=== PATIENT | male | born 1945 | race Asian ===

== ENCOUNTER 2017-03-15 13:29 | Inpatient (IN) | payer OTHER ==
--- NOTE | 2017-03-15 13:42 | PDOC ---
History of Present Illness - History of Present Illness Initial Comments: 03/15/17 14:05 The patient is a 71 year old male, with a significant past medical history of hypertension, who presents to the emergency department via ems for left facial droop, left upper and lower extremity weakness this afternoon. The patient presents from [facility] friends who reports the patient was last known well at 1pm when he developed some slurred speech and left sided facial droop, as well as, left upper and lower extremity weakness. The patient states he was recently taken off of his losartan. He denies chest pain, shortness of breath, headache and dizziness. He denies fever, chills, nausea, vomit, diarrhea and constipation. He denies dysuria, frequency, urgency and hematuria. Allergies: NKDA Social history: Denies toxic habits <Rolanda Gonzalez - Last Filed: 03/15/17 14:31> <Xiomy Owens - Last Filed: 03/16/17 07:43> - General Chief Complaint: CVA/TIA Stated Complaint: LT SIDE NUMBNESS, CHEST PAIN Time Seen by Provider: 03/15/17 13:31 Past History <Rolanda Gonzalez - Last Filed: 03/15/17 14:31> - Past Medical History HTN: Yes - Psycho/Social/Smoking Cessation Hx Suicidal Ideation: No Smoking History: Never smoked Information on smoking cessation initiated: No <Xiomy Owens - Last Filed: 03/16/17 07:43> - Past Medical History Allergies/Adverse Reactions: Allergies Allergy/AdvReac Type Severity Reaction Status Date / Time No Known Allergies Allergy Verified 03/15/17 13:36 Home Medications: Ambulatory Orders NK [No Known Home Medication] 03/15/17 Review of Systems - Review of Systems Able to Perform ROS?: Yes Comments:: 03/15/17 14:08 GENERAL/CONSTITUTIONAL: No fever or chills. No weakness. HEAD, EYES, EARS, NOSE AND THROAT: No change in vision. No ear pain or discharge. No sore throat. CARDIOVASCULAR: No chest pain or shortness of breath. RESPIRATORY: No cough, wheezing, or hemoptysis. GASTROINTESTINAL: No nausea, vomiting, diarrhea or constipation. GENITOURINARY: No dysuria, frequency, or change in urination. MUSCULOSKELETAL: No joint or muscle swelling or pain. No neck or back pain. SKIN: No rash NEUROLOGIC: (+) Left facial droop, left upper and lower extremity weakness. No headache, vertigo, loss of consciousness ENDOCRINE: No increased thirst. No abnormal weight change. HEMATOLOGIC/LYMPHATIC: No anemia, easy bleeding, or history of blood clots. ALLERGIC/IMMUNOLOGIC: No hives or skin allergy. <MargaritafuentesyasminRolanda - Last Filed: 03/15/17 14:31> *Physical Exam - Vital Signs Last Vital Signs Temp Pulse Resp BP Pulse Ox 98 F 71 18 232/112 98 03/15/17 13:32 03/15/17 13:32 03/15/17 13:32 03/15/17 13:32 03/15/17 13:32 - Physical Exam Comments: 03/15/17 14:14 GENERAL: Awake, alert, and oriented, in no acute distress HEAD: No signs of trauma EYES: PERRLA, EOMI, sclera anicteric, conjunctiva clear ENT: Auricles normal inspection, hearing grossly normal, nares patent, oropharynx clear without exudates. Moist mucosa NECK: Normal ROM, supple, no lymphadenopathy, JVD, or masses LUNGS: Breath sounds equal, clear to auscultation bilaterally. No wheezes, and no crackles HEART: Regular rate and rhythm, normal S1 and S2, no murmurs, rubs or gallops ABDOMEN: Soft, nontender, normoactive bowel sounds. No guarding, no rebound. No masses EXTREMITIES: no edema. No clubbing or cyanosis. No cords, erythema, or tenderness SKIN: Warm, Dry, normal turgor, no rashes or lesions noted. NEUROLOGICAL: (+) See stroke scale <MargaritaRolanda fabian - Last Filed: 03/15/17 14:31> - Vital Signs Last Vital Signs Temp Pulse Resp BP Pulse Ox 98 F 71 18 232/112 98 03/15/17 13:32 03/15/17 13:32 03/15/17 13:32 03/15/17 13:32 03/15/17 13:32 <Xiomy Owens - Last Filed: 03/16/17 07:43> NIH Stroke Scale - Last Known Well Date/Time & Onset Date Last Known Well: 03/15/17 Time Last Known Well: 13:00 - Initial Evaluation Level of consciousness: Alert Ask patient the month and their age: Answers both correctly Ask patient to open & close eyes; make fist and let go: Obeys both correctly Best gaze (horizontal eye movement): Normal Visual field testing: No visual field loss Facial paresis (Show teeth/raise eyebrows/close eyes tight): Minor paralysis ( flattened nasolabial fold, asymmetry on smiling) Motor Function: Left Arm: Drift Motor Function: Right Arm: Normal (extends arm 90 (or 45) degrees for 10 seconds without drift Motor Function: Left Leg: Drift Motor Function: Right Leg: Normal (extends leg 30 degrees for 5 seconds without drift) Limb Ataxia: No ataxia Sensory(Use pinprick test arms,legs,trunk,face/side to side): Normal Best language (Describe picture, name items, read sentences): No Aphasia Dysarthria (read several words): Mild to moderate slurring of words Extinction and Inattention: No abnormality - Total Score NIH Stroke Scale Score: 4 <Xiomy Owens - Last Filed: 03/16/17 07:43> tPA Exclusion Checklist 0-3hr - Time Elapsed Date last known well: 03/15/17 Time last known well: 13:00 Elaspsed time: Day(s) and 18 Hour(s) and 42 Minutes <Xiomy Owens - Last Filed: 03/16/17 07:43> Critical Care Time/MDM Note - Medical Decision Making Note: 03/15/17 13:58 After getting the official read of the Head CT, Dr. Werner Rocha, Neurosurgeon, was paged via phone answering service at 14:00 requesting an urgent call back for doctor to doctor consult regarding this patient. 03/15/17 14:21 Dr. Werner Rocha was paged a second time at 14:20 requesting a call back for doctor to doctor consult. Dr. Rocha returned the call at 14:24 and the patient's case was discussed. 03/15/17 14:26 Dr. Martin, neurologist, was paged via phone answering service at this time requesting a call back for doctor to doctor consult. <Rolanda Gonzalez - Last Filed: 03/15/17 14:31> Total Critical Care Time: 35 Critical Care Statement: The care of this patient involved high complexity decision making to prevent further life threatening deterioration of the patient 's condition and/or to evalute & treat vital organ system(s) failure or risk of failure. - Medical Decision Making Note: 03/15/17 14:24 Case d/w Dr. Rocha- will medically manage BP with nicardipine drip. Goal SBP <160 , DBP <90. No operative intervention at this time. Will evaluate. 03/15/17 14:29 Case d/w Dr. Rice, accepted to ICU. <Xiomy Owens - Last Filed: 03/16/17 07:43> Discharge Disposition - Transfer to Acute Care Facility Transfer comment: 03/15/17 14:09 Documentation prepared by Rolanda Gonzalez, acting as medical receptionist biller for Xiomy Owens MD <Rolanda Gonzalez - Last Filed: 03/15/17 14:31> - Discharge Dispostion Admit: Yes <Xiomy Owens - Last Filed: 03/16/17 07:43> - Diagnosis Intracranial hemorrhage - Discharge Dispostion Condition at time of disposition: Critical ED Treatment Course - LABORATORY CBC & Chemistry Diagram: 03/15/17 13:15 03/15/17 13:15 - ADDITIONAL ORDERS Additional order review: Laboratory Results 03/15/17 13:41 POC Glucometer [id number] 03/15/17 03/15/17 13:41 13:15 RBC 4.79 MCV 92.1 MCHC 33.0 RDW 13.5 MPV 7.9 Neutrophils % 66.2 Lymphocytes % 20.4 Monocytes % 8.4 Eosinophils % 4.3 Basophils % 0.7 POC Glucometer [id number] - RADIOLOGY Radiograph Interpretation: 03/15/17 14:[address] was read by Dr. Alexander Lopez at 13:58 Impression: Right-sided internal capsular/intercerebral hemorrhage with minimal midline shift to the left. recommend follow-up to exclude underlying pathology. <Rolanda Gonzalez - Last Filed: 03/15/17 14:31> - LABORATORY CBC & Chemistry Diagram: 03/16/17 05:25 03/16/17 05:25 <Xiomy Owens - Last Filed: 03/16/17 07:43>
[2017-03-15] MEDS ORDERED: SODIUM CHLORIDE 1,000 ML IV SCH (13:45)
[2017-03-15 13:53] LABS: BASOPHIL 0.7 % (0-2.0); EOSINOPHIL 4.3 % (0-4.5); MCH 30.4 pg (25.7-33.7); MEAN CELL VOLUME 92.1 fl (80-96); MEAN PLT VOLUME 7.9 fl (7.5-11.1); NEUTROPHILS 66.2 % (42.8-82.8); PLATELET COUNT 237 K/MM3 (134-434); RDW 13.5 % (11.9-15.9)
[2017-03-15] MEDS ORDERED: NICARDIPINE 25 MG in DEXTROSE 5%-WATER - 240 ML IVPB SCH ×2 (14:00→14:26)
[2017-03-15] MEDS ORDERED: niCARdipine HCL 25 MG/10 ML AMPUL IVPB ONE (14:14)
[2017-03-15 14:15] LABS: ANION GAP 9 (8-16); BILIRUBIN,TOTAL 0.6 mg/dL (0.2-1.0); CALCIUM 8.5 mg/dL (8.5-10.1); CHOLESTEROL 209 mg/dL (50-200); CO2 28 mmol/L (21-32); COCKROFT - GAULT 42.84; CREATININE 1.4 mg/dL (0.7-1.3); GLUCOSE,RANDOM 87 mg/dL (74-106); SGOT/AST 18 U/L (15-37); SGPT/ALT 20 U/L (12-78); TOT PROT 7.4 g/dl (6.4-8.2)
[2017-03-15 14:18] LABS: ALK PHOS 63 U/L (45-117); TROPONIN I < 0.02 ng/ml (0.00-0.05)
[2017-03-15 14:55] LABS: LDL CHOLESTEROL (ONLY SJRH) 125 mg/dL (5-100)
[2017-03-15] MEDS: NICARDIPINE 25 MG in DEXTROSE 5%-WATER - 240 ML IVPB SCH (15:10)
[2017-03-15] MEDS ORDERED: ACETAMINOPHEN 1000 MG/100 ML VIAL (NON FORMULARY) IVPB PRN (16:14)
--- NOTE | 2017-03-15 17:24 | HP ---
CHIEF COMPLAINT: Left arm weakness PCP: HISTORY OF PRESENT ILLNESS: 71 year old male with pmh of HTN, hyperlipidemia who recently went off his Losartan persent to the emergency department with left arm weakness. The patient started having left arm weakness while driving at 11am today going to [employer]. During [employer] patient had multiple episode of left arm weakness, drop bible, cups. Around 1PM, [facility] saw patient having slurred speech, left facial droop, left arm weakness and started to have difficulty walking. Pt said his blood pressure has been 150's recently. Pt denies headache, blurred vision, double vision, n/v, dizziness, confusion, numbness or tingling, dizziness. ER course was notable for: (1) CT head (2) Nicardipine drip, NS at 42ml/h (3) EKg Recent Travel: PAST MEDICAL HISTORY: Hypertension, Hyperlipidemia PAST SURGICAL HISTORY: None Social History: Smoking: quit 10 years ago, smoked for 35 year 1/2 pack per day Alcohol: none Drugs: none Family History: father with HTN, Sister with HTN, PA, CVA Allergies No Known Allergies Allergy (Verified 03/15/17 13:36) HOME MEDICATIONS: Home Medications Medication Instructions Recorded NK [No Known Home Medication] 03/15/17 REVIEW OF SYSTEMS CONSTITUTIONAL: Absent: fever, chills, diaphoresis, generalized weakness, malaise, loss of appetite, weight change HEENT: left facial droop Absent: rhinorrhea, nasal congestion, throat pain, throat swelling, difficulty swallowing, mouth swelling, ear pain, eye pain, visual changes CARDIOVASCULAR: Absent: chest pain, syncope, palpitations, irregular heart rate, lightheadedness , peripheral edema RESPIRATORY: Absent: cough, shortness of breath, dyspnea with exertion, orthopnea, wheezing, stridor, hemoptysis GASTROINTESTINAL: Absent: abdominal pain, abdominal distension, nausea, vomiting, diarrhea, constipation, melena, hematochezia GENITOURINARY: Absent: dysuria, frequency, urgency, hesitancy, hematuria, flank pain, genital pain MUSCULOSKELETAL: Absent: myalgia, arthralgia, joint swelling, back pain, neck pain SKIN: Absent: rash, itching, pallor HEMATOLOGIC/IMMUNOLOGIC: Absent: easy bleeding, easy bruising, lymphadenopathy, frequent infections ENDOCRINE: Absent: unexplained weight gain, unexplained weight loss, heat intolerance, cold intolerance NEUROLOGIC: left arm weakness Absent: headache, or paresthesias, dizziness, unsteady gait, seizure, mental status changes, bladder or bowel incontinence PSYCHIATRIC: Absent: anxiety, depression, suicidal or homicidal ideation, hallucinations. PHYSICAL EXAMINATION Vital Signs - 24 hr 03/15/17 03/15/17 03/15/17 14:45 15:10 15:30 Pulse Rate [ 60 84 93 H Left Radial] Respiratory 18 18 18 Rate Blood Pressure 185/104 Blood Pressure 190/110 185/104 150/85 [Left Arm] O2 Sat by Pulse 99 100 99 Oximetry (%) GENERAL: Awake, alert, and fully oriented, in no acute distress. HEAD: Normal with no signs of trauma. EYES: Pupils equal, round and reactive to light, extraocular movements intact, sclera anicteric, conjunctiva clear. No lid lag. EARS, NOSE, THROAT: Ears normal, nares patent, oropharynx clear without exudates. Moist mucous membranes. NECK: Normal range of motion, supple without lymphadenopathy, JVD, or masses. LUNGS: Breath sounds equal, clear to auscultation bilaterally. No wheezes, and no crackles. No accessory muscle use. HEART: irregular rate and rhythm, normal S1 and S2 without murmur, rub or gallop. ABDOMEN: Soft, nontender, not distended, normoactive bowel sounds, no guarding, no rebound, no masses. No hepatomegaly or splenomegaly. MUSCULOSKELETAL: Normal range of motion at all joints. No bony deformities or tenderness. No CVA tenderness. UPPER EXTREMITIES: 2+ pulses, warm, well-perfused. No cyanosis. No clubbing. No peripheral edema. LOWER EXTREMITIES: 2+ pulses, warm, well-perfused. No calf tenderness. No peripheral edema. NEUROLOGICAL: Alert, awake, appropriate. Cranial nerves 2-12 intact. left facial droop, no uvula, tongue, palate deviation. No deficits to light touch and temperature in face, upper extremities and lower extremities. motor deficits in the in left face, left upper extremities 4/5 while right upper ext 5 /5 strength and lower extremities 5/5 rigth and 4.5/5 left. Normoreflexic in the upper ext and lower extremities ext reflex 3+ b/l . Slurred speech. Toes are down-going bilaterally. Gait not observed PSYCHIATRIC: Cooperative. Good eye contact. Appropriate mood and affect. SKIN: Warm, dry, normal turgor, no rashes or lesions noted, normal capillary refill. ASSESSMENT/PLAN: 71 year old male with pmh of HTN, hyperlipidemia who recently went off his Losartan present to the emergency department with left arm weakness. Pt was found to have intracranial hemorrhage. Intracranial Hemorrhage CT head showed Right internal capsular/intracerebral hemorrhage with minimal midline shift to the left Pt came in with BP 232/112, MAP>152 Pt placed on Nicardipine drip with BP goal 20% drop or < 160/105, avoid hypotension Normal saline at 42ml/h Pt failed bedside swallow NPO Speech therapy consult Watch for Increased ICP watch for Nola reflex ( hypertension and bradycardia ) keep HOB elevated 30-45 degrees Aspiration precaution Consider Mannitol and/or hypertonic saline If increase ICP Consider Keppra, Dilantin or Fosphenitoin If seizure Neurocheck q1-2h GCS q1-2h If worsening neurocheck or dropping GCS, consider intubating Consider dropping PCO2 25-30 BGM q6h Novolog sliding scale, avoid hypoglycemia, Goal Blood sugar 140-[address] Rocha Neurology consulted Dr keith New onset AFIB EKG stat ECho Cardio consult NO anticoagulation due to hemorrhagic stroke Consider cardizem 10mg prn IV consider metoprolol 5mg IV prn FEN Fluid:Increase to 100ml/h Electrolytes: no abdnormality Nutrition : NPO Deconditioning: PT/OT DVT prophylaxis: SCD Disposition: admit to ICU Visit type - Emergency Visit Emergency Visit: Yes ED Registration Date: 03/15/17 Care time: The patient presented to the Emergency Department on the above date and was hospitalized for further evaluation of their emergent condition. - New Patient This patient is new to me today: Yes Date on this admission: 03/15/17 - Critical Care Critical Care patient: No Total Critical Care Time (in minutes): 45 Critical Care Statement: The care of this patient involved high complexity decision making to prevent further life threatening deterioration of the patient 's condition and/or to evalute & treat vital organ system(s) failure or risk of failure.
--- NOTE | 2017-03-15 17:53 | PN ---
Teaching Attending Note Name of Resident: Erik Pryor ATTENDING PHYSICIAN STATEMENT I saw and evaluated the patient. I reviewed the resident's note and discussed the case with the resident. I agree with the resident's findings and plan as documented. SUBJECTIVE: This is a 71-year-old man with a history of HTN who presented to the ER with left facial droop and left sided weakness. He reports having left arm weakness while driving to [employer] at 11 am. He was noted to have slurred speech and left facial droop while at [employer] around 1 pm. He had difficulty walking. He was recently taken off Cozaar. OBJECTIVE: Vital Signs Period Temp Pulse Resp BP Sys/Alba Pulse Ox Last 24 Hr 98 F 60-93 18-18 150-232/85-116 98-100 HEART: Irregularly irregular LUNGS: Clear ABDOMEN: Soft, non-tender, nondistended, normal BS EXTREMITIES: No edema NEUROLOGICAL: Alert, oriented, dysarthria, left facial droop, tongue deviates to left, strength 4/5 on left, sensation intact ASSESSMENT AND PLAN: This is a 71-year-old man with a history of HTN, recently taken off antihypertensives, who comes to the ER with slurred speech, left facial droop, left-sided weakness. 1. 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 Uncontrolled HTN - Manage with Nicardipine drip 3. New-onset atrial fibrillation - Cardiac monitoring - Rate currently is ok - Monitor troponin - Echocardiogram - No anticoagulation secondary to intracranial hemorrhage
--- NOTE | 2017-03-15 18:05 | EKG ---
Test Reason : Blood Pressure : / mmHG Vent. Rate : 065 BPM Atrial Rate : 065 BPM P-R Int : 168 ms QRS Dur : 080 ms QT Int : 416 ms P-R-T Axes : 063 -04 010 degrees QTc Int : 432 ms NORMAL SINUS RHYTHM VOLTAGE CRITERIA FOR LEFT VENTRICULAR HYPERTROPHY ABNORMAL ECG NO PREVIOUS ECGS AVAILABLE Confirmed by MARY MORALES MD ([id number]) on 03/15/2017 6:04:46 PM Referred By: Confirmed By:MARY MORALES MD
[2017-03-15] MEDS: SODIUM CHLORIDE 1,000 ML IV SCH (19:09)
[2017-03-15] MEDS: INSULIN SLIDING SCALE (NOVOLOG) 1 VIAL SQ SCH ×2 (19:09→23:40)
[2017-03-15 19:48] LABS: URINE APPEARANCE CLEAR; URINE BILIRUBIN NEGATIVE (NEGATIVE); URINE BLOOD NEGATIVE (NEGATIVE); URINE COLOR COLORLESS; URINE GLUCOSE (UA) NEGATIVE (NEGATIVE); URINE KETONE TRACE (NEGATIVE); URINE LEUK ESTERASE NEGATIVE (NEGATIVE); URINE NITRITE NEGATIVE (NEGATIVE); URINE PROTEIN NEGATIVE (NEGATIVE); URINE UROBILINOGEN NEGATIVE E.U./dl (0.2-1.0)
--- NOTE | 2017-03-15 20:08 | CONSULT ---
Consult Consult Specialty:: CCM Reason for Consultation:: ICH - History of Present Illness Chief Complaint: left sided weakness History of Present Illness: This is a 71 yo man former smoker, HLD, HTN recently taken off losartan who presented to the ED with new onset left sided weakness, facial droop and slurred speech. Briefly, he was in his usual state of health when driving to [employer] he noticed left arm weakness w/o any LOC/vertigo/CLEMENT/nausea/dizziness/ blurry vision/CP. At [employer] he continued to have left sided weakness and was dropping objects. A ED doctor was in the [employer] and noticed a new left sided facial droop and EMS was activated. In the ED his exam was notable for left sided facial droop, left upper and lower extremity weakness. He had left sided pronator drift on exam with slurring of some words. HCT done: Right-sided internal capsular/intracerebral hemorrhage with minimal midline shift to the left. Neurology and Neurosurgery consulted. BP was noted to be 232/112 and diltiazem drip started for BP control. He had a run of RVR that convert back to NSR with the CCB drip. Patient transferred to ICU for continued care and monitoring. In the ICU he remains on the CCB drip with BP: 140-160. He is awake, alert and cooperative. He denies: CP/n/v/vertigo/LOC/dizziness/CLEMENT. Exam notable for left facial droop and left sided pronator drift. - History Source History Provided By: Patient, Medical Record Limitations to Obtaining History: No Limitations - Past Medical History Cardio/Vascular: Yes: HTN, Hyperlipdemia - Smoking History Smoking history: Former smoker Have you smoked in the past 12 months: No If you are a former smoker, when did you quit?: 2006 - Social History Usual Living Arrangement: With Spouse History of Recent Travel: No Home Medications - Allergies Allergies/Adverse Reactions: Allergies Allergy/AdvReac Type Severity Reaction Status Date / Time No Known Allergies Allergy Verified 03/15/17 13:36 - Home Medications Home Medications: Ambulatory Orders NK [No Known Home Medication] 03/15/17 Family Disease History - Family Disease History Family History: Unremarkable Review of Systems - Review of Systems Constitutional: reports: Weakness (left sided) HENT: reports: Difficult Swallowing Neurological: reports: Change in Speech, Unsteady Gait Physical Exam Vital Signs: Vital Signs Temperature 98 F 03/15/17 13:32 Pulse Rate 77 03/15/17 19:20 Respiratory Rate 20 03/15/17 19:20 Blood Pressure 169/89 03/15/17 19:20 O2 Sat by Pulse Oximetry (%) 99 03/15/17 19:20 Current Medications Acetaminophen (Ofirmev Injection -) 1,000 mg IVPB Q6H PRN PRN Reason: FEVER OR PAIN Stop: 03/16/17 10:15 Chlorhexidine Gluconate (Hibiclens For Decolonization -) 1 applic TP HS NIRAJ Nicardipine HCl 25 mg/ (Dextrose) 250 mls @ 25 mls/hr IVPB TITR NIRAJ; 2.5 MG/HR PRN Reason: Protocol Last Titration: 03/15/17 18:09 Dose: 2.5 mg/hr Sodium Chloride (Normal Saline -) 1,000 mls @ 100 mls/hr IV ASDIR NIRAJ Last Admin: 03/15/17 19:09 Dose: 100 mls/hr Insulin Aspart (Novolog Vial Sliding Scale -) 1 vial SQ Q6HPO NIRAJ PRN Reason: Protocol Last Admin: 03/15/17 19:09 Dose: Not Given Mupirocin (Bactroban Ointment (For Decolonization) -) 1 applic NS BID NIRAJ Stop: 03/20/17 21:59 Constitutional: Yes: Well Nourished, No Distress, Calm Eyes: Yes: EOM Intact, PERRL HENT: Yes: Atraumatic, Normocephalic Neck: Yes: Trachea Midline Cardiovascular: Yes: Regular Rate and Rhythm, S2 Respiratory: Yes: CTA Bilaterally Gastrointestinal: Yes: Normal Bowel Sounds, Soft Extremities: Yes: WNL Edema: No Neurological: Yes: Alert, Oriented, Facial Droop (left side), Other (left sided drift) Psychiatric: Yes: Alert, Oriented Labs: CBCD WBC 6.0 K/mm3 (4.0-10.0) 03/15/17 13:15 RBC 4.79 M/mm3 (4.00-5.60) 03/15/17 13:15 Hgb 14.6 GM/dL (11.7-16.9) 03/15/17 13:15 Hct 44.2 % (35.4-49) 03/15/17 13:15 MCV 92.1 fl (80-96) 03/15/17 13:15 MCHC 33.0 g/dl (32.0-35.9) 03/15/17 13:15 RDW 13.5 % (11.9-15.9) 03/15/17 13:15 Plt Count 237 K/MM3 (134-434) 03/15/17 13:15 MPV 7.9 fl (7.5-11.1) 03/15/17 13:15 CMP Sodium 141 mmol/L (136-145) 03/15/17 13:15 Potassium 3.4 mmol/L (3.5-5.1) L 03/15/17 13:15 Chloride 104 mmol/L (98-107) 03/15/17 13:15 Carbon Dioxide 28 mmol/L (21-32) 03/15/17 13:15 Anion Gap 9 (8-16) 03/15/17 13:15 BUN 13 mg/dL (7-18) 03/15/17 13:15 Creatinine 1.4 mg/dL (0.7-1.3) H 03/15/17 13:15 Creat Clearance w eGFR 49.96 (>60) 03/15/17 13:15 Random Glucose 87 mg/dL (74-106) 03/15/17 13:15 Calcium 8.5 mg/dL (8.5-10.1) 03/15/17 13:15 Total Bilirubin 0.6 mg/dL (0.2-1.0) 03/15/17 13:15 AST 18 U/L (15-37) 03/15/17 13:15 ALT 20 U/L (12-78) 03/15/17 13:15 Alkaline Phosphatase 63 U/L (45-117) 03/15/17 13:15 Total Protein 7.4 g/dl (6.4-8.2) 03/15/17 13:15 Albumin 4.0 g/dl (3.4-5.0) 03/15/17 13:15 CARDIAC ENZYMES Creatine Kinase 91 IU/L (39-308) 03/15/17 13:15 Troponin I < 0.02 ng/ml (0.00-0.05) 03/15/17 13:15 Imaging - Results Chest X-ray: Report Reviewed, Image Reviewed Cat Scan: Report Reviewed, Image Reviewed Problem List - Problems (1) Intracranial hemorrhage Code(s): I62.9 - NONTRAUMATIC INTRACRANIAL HEMORRHAGE, UNSPECIFIED (2) HTN (hypertension) Code(s): I10 - ESSENTIAL (PRIMARY) HYPERTENSION (3) Atrial fibrillation with RVR Code(s): I48.91 - UNSPECIFIED ATRIAL FIBRILLATION (4) Hypertensive emergency Code(s): I16.1 - HYPERTENSIVE EMERGENCY Assessment/Plan A/P: This is a 71 yo man with HLD, HTN p/w hypertensive emergency with right sided ICH: Right-sided internal capsular/intracerebral hemorrhage with minimal midline shift to the left, c/c/b afib w/ RVR -ICU monitoring -Neuro/neurosurgery following -frequent neuro checks -repeat head CT in AM or with any change in clinical status -BP control with diltiazem: goal SBP 140-160 -rate control w/ CCB -NPO, w/ speech pathology to follow -IV fluids -early PT/OT -no anticoagulation given ICH -no indication for GI prophylaxis Boelatonya ACNP Pulm/CCM CCT: 35m
[2017-03-15] MEDS: MUPIROCIN 2% TOPICAL OINTMENT FOR DECOLONIZATION NS SCH (21:30)
[2017-03-15] MEDS: CHLORHEXIDINE GLUCONATE 4% CLEANSER FOR DECOLONIZATION TP SCH (21:30)
[2017-03-16] MEDS ORDERED: niCARdipine HCL 25 MG/10 ML AMPUL IVPB ONE (05:57)
[2017-03-16 06:20] LABS: BASOPHIL 0.6 % (0-2.0); EOSINOPHIL 4.4 % (0-4.5); MCH 30.4 pg (25.7-33.7); MCHC 33.3 g/dl (32.0-35.9); MEAN CELL VOLUME 91.4 fl (80-96); MEAN PLT VOLUME 8.3 fl (7.5-11.1); NEUTROPHILS 67.2 % (42.8-82.8); PLATELET COUNT 257 K/MM3 (134-434); RDW 13.4 % (11.9-15.9); WHITE BLOOD COUNT 6.4 K/mm3 (4.0-10.0)
[2017-03-16 06:42] LABS: INR 1.03 (0.82-1.09); PROTHROMBIN TIME (PATIENT) 11.3 SEC (9.98-11.88)
[2017-03-16 06:43] LABS: ALBUMIN 3.8 g/dl (3.4-5.0); ANION GAP 11 (8-16); CALCIUM 8.2 mg/dL (8.5-10.1); CO2 27 mmol/L (21-32); COCKROFT - GAULT 52.21; CREATININE 1.1 mg/dL (0.7-1.3); GLUCOSE,RANDOM 74 mg/dL (74-106); PHOSPHOROUS 2.5 mg/dL (2.5-4.9); SGOT/AST 18 U/L (15-37); SGPT/ALT 19 U/L (12-78)
[2017-03-16 06:45] LABS: ACTIVATED PTT 36.7 SECONDS (26.9-34.4)
[2017-03-16 06:47] LABS: ALK PHOS 63 U/L (45-117); BILIRUBIN,TOTAL 0.8 mg/dL (0.2-1.0); TOT PROT 7.2 g/dl (6.4-8.2); TROPONIN I 0.05 ng/ml (0.00-0.05)
[2017-03-16] MEDS: INSULIN SLIDING SCALE (NOVOLOG) 1 VIAL SQ SCH ×3 (06:48→20:30)
--- NOTE | 2017-03-16 08:17 | PN ---
Progress Note (short form) - Note Progress Note: NEUROSURGERY CONSULT DICTATED Pt examined Chart reviewed D/w ED earlier H/o hypertension recently off meds, presents to the emergency department via ems for left facial droop, left upper and lower extremity weakness yestesday afternoon. Had developed some slurred speech and left sided facial droop, left upper and lower extremity weakness. PE:98 123/75, with SBP over 230 in ED A/A/Ox4 HEENT- NC/AT; Neck- supple; Cor- RRR; lungs- CTA B; Abd-benign; Ext- no sign of DVT CN- tongue deviation to L; Motor 5/5 with no/minimal L drift; Sensation- intact LT; DTR-hyporeflexic INR 1.03, ptt 36.[address]: R putamen ICH with posterior mixed density blood, approx 1.2 cm x 4 cm ; mild mass effect and mild R to L shift Hypertensive R putamen ICH with mild mass effect BP control SBP < 160 DBP < 90 F/u head CT today No neurosurgical intervention recommended given relatively intact exam and currently without significant symptoms Pt aware
--- NOTE | 2017-03-16 08:56 | CONSULT ---
Consult - text type - Consultation Consultation Note: Neurology History of Present Illness The patient is a 71 year old male, with a significant past medical history of hypertension, who presents to the emergency department via ems for left facial droop, left upper and lower extremity weakness. The patient presents [place] [facility] [place] friends who reported the patient developed some slurred speech and left sided facial droop, as well as, left upper and lower extremity weakness. The patient states he was recently taken off of his losartan. In ER, CT head completed right-sided internal capsular/intercerebral hemorrhage with minimal midline shift to the left. Jake Riggins consulted and no surigical intervention as patient exam intact. Past History - Past Medical History HTN: Yes - Psycho/Social/Smoking Cessation Hx Suicidal Ideation: No Smoking History: Never smoked Information on smoking cessation initiated: No <Xiomy Owens - Last Filed: 03/16/17 07:43> - Past Medical History Allergies/Adverse Reactions: Allergies Allergy/AdvReac Type Severity Reaction Status Date / Time No Known Allergies Allergy Verified 03/15/17 13:36 Home Medications: Ambulatory Orders NK [No Known Home Medication] 03/15/17 Review of Systems - Review of Systems Able to Perform ROS?: Yes Comments:: 03/15/17 14:08 GENERAL/CONSTITUTIONAL: No fever or chills. No weakness. HEAD, EYES, EARS, NOSE AND THROAT: No change in vision. No ear pain or discharge. No sore throat. CARDIOVASCULAR: No chest pain or shortness of breath. RESPIRATORY: No cough, wheezing, or hemoptysis. GASTROINTESTINAL: No nausea, vomiting, diarrhea or constipation. GENITOURINARY: No dysuria, frequency, or change in urination. MUSCULOSKELETAL: No joint or muscle swelling or pain. No neck or back pain. SKIN: No rash NEUROLOGIC: (+) Left facial droop, left upper and lower extremity weakness. No headache, vertigo, loss of consciousness ENDOCRINE: No increased thirst. No abnormal weight change. HEMATOLOGIC/LYMPHATIC: No anemia, easy bleeding, or history of blood clots. ALLERGIC/IMMUNOLOGIC: No hives or skin allergy. *Physical Exam Last Vital Signs Temp Pulse Resp BP Pulse Ox 98.0 F 74 16 123/75 98 03/16/17 06:00 03/16/17 07:25 03/16/17 06:00 03/16/17 07:25 03/15/17 20:00 GENERAL: Awake, alert, and oriented, in no acute distress HEAD: No signs of trauma EYES: PERRLA, EOMI, sclera anicteric, conjunctiva clear ENT: Auricles normal inspection, hearing grossly normal, nares patent, oropharynx clear without exudates. Moist mucosa NECK: Normal ROM, supple, no lymphadenopathy, JVD, or masses LUNGS: Breath sounds equal, clear to auscultation bilaterally. No wheezes, and no crackles HEART: Regular rate and rhythm, normal S1 and S2, no murmurs, rubs or gallops ABDOMEN: Soft, nontender, normoactive bowel sounds. No guarding, no rebound. No masses EXTREMITIES: no edema. No clubbing or cyanosis. No cords, erythema, or tenderness SKIN: Warm, Dry, normal turgor, no rashes or lesions noted. NEUROLOGICAL: CN intact, strength equal b/l, sensory normal, gait deferred - Medical Decision Making 71 year old male, with a significant past medical history of hypertension, who presents to the emergency department via ems for left facial droop, left upper and lower extremity weakness. The patient presents [place] [facility] friends who reported the patient developed some slurred speech and left sided facial droop, as well as, left upper and lower extremity weakness. The patient states he was recently taken off of his losartan. In ER, CT head completed right-sided internal capsular/intercerebral hemorrhage with minimal midline shift to the left. Jake JAMESON NSLevy consulted and no surigical intervention as patient exam intact. COntinue ICU care, based on size and location, etiology likely hypertensive. Tigher BP control recommended. Recommend repeat CT head today to confirm no expansion. Fall precautions.
--- NOTE | 2017-03-16 09:37 | PN ---
Progress Note (short form) - Note Progress Note: PULMONARY/CCM Pt seen and examined in the ICU. Feels better today. Denies headache, nausea or vomiting. Remains on cardene gtt. Left sided motor strength improving. Last Vital Signs Temp Pulse Resp BP Pulse Ox 98.0 F 74 16 123/75 98 03/16/17 06:00 03/16/17 07:25 03/16/17 06:00 03/16/17 07:25 03/15/17 20:00 Intake & Output 03/13/17 03/14/17 03/15/17 03/16/17 23:59 23:59 23:59 23:59 Intake Total 1425 805 Output Total 1800 1000 Balance -375 -195 Weight 132 lb 2 oz 132 lb 2 oz Gen: NAD at rest Heart: RRR Lung: decreased breath sounds at the bases Abd: soft, nontender Ext: no edema Neuro: 5/5 LUE/LLE strength CBC, BMP 03/16/17 05:25 03/16/17 05:25 Active Medications Acetaminophen (Ofirmev Injection -) 1,000 mg IVPB Q6H PRN PRN Reason: FEVER OR PAIN Stop: 03/16/17 10:15 Chlorhexidine Gluconate (Hibiclens For Decolonization -) 1 applic TP HS NIRAJ Last Admin: 03/15/17 21:30 Dose: 1 applic Nicardipine HCl 25 mg/ (Dextrose) 250 mls @ 25 mls/hr IVPB TITR NIRAJ; 2.5 MG/HR PRN Reason: Protocol Last Titration: 03/16/17 07:25 Dose: 1 mg/hr Sodium Chloride (Normal Saline -) 1,000 mls @ 100 mls/hr IV ASDIR NIRAJ Last Admin: 03/15/17 19:09 Dose: 100 mls/hr Insulin Aspart (Novolog Vial Sliding Scale -) 1 vial SQ Q6HPO NIRAJ PRN Reason: Protocol Last Admin: 03/16/17 06:48 Dose: Not Given Mupirocin (Bactroban Ointment (For Decolonization) -) 1 applic NS BID NIRAJ Stop: 03/20/17 21:59 Last Admin: 03/15/17 21:30 Dose: 1 applic A/P Intracranial Hemorrhage Hypertensive Urgency Atrial Fibrillation Hyperlipidemia - repeat CT head - BP control, keep BP <160/90 - neuro checks - PO as tolerated - replete lytes - echocardiogram - PT/rehab/swallow eval - DVT prophylaxis - continue ICU monitoring critical care time spent reviewing chart, evaluating patient and formulating plan 35 min
[2017-03-16] MEDS: MUPIROCIN 2% TOPICAL OINTMENT FOR DECOLONIZATION NS SCH ×2 (10:00→22:00)
[2017-03-16] MEDS: KCL 10 MEQ IVPB 100 ML IVPB SCH ×3 (10:30→14:00)
--- NOTE | 2017-03-16 13:56 | CONS ---
DATE OF CONSULTATION: 03/16/2017 CHIEF COMPLAINT: Right putamen hypertensive hemorrhage. HISTORY OF PRESENT ILLNESS: The patient is a 71-year-old right-handed male with history of hypertension, recently off medication, who was driving to [employer] earlier yesterday afternoon, when he complained of left facial droop, left upper and lower extremity weakness. He did not have slurred speech or any altered mental status. He did not complain much of a headache. Presently, he denies headache, nausea, vomiting, weakness, numbness, or any abnormal symptoms. He had been on Cardene drip yesterday. His initial blood pressure was over 220 systolic. PAST MEDICAL HISTORY: Significant for hypertension, recently off medication. CURRENT MEDICATIONS: Include nicardipine drip, insulin sliding scale coverage. There are no known drug allergies. FAMILY HISTORY: Noncontributory. SOCIAL HISTORY: He does not smoke, but he did smoke up to 8 years ago when he quit. He used to smoke half a pack a day. He drinks alcohol only socially. He is retired. REVIEW OF SYSTEMS: Otherwise negative for other major cardiovascular, pulmonary , gastrointestinal, genitourinary, endocrinologic, neurologic, or psychological problems except for the above. PHYSICAL EXAMINATION: Vital Signs: Temperature is 98, blood pressure currently is 123/75 on Cardene drip. He had an initial blood pressure in the emergency room of 232/112. HEENT: Examination shows him to be normocephalic, atraumatic, anicteric. Neck: Supple with no lymphadenopathy, no carotid bruit. Coronary: Examination demonstrates a regular rhythm. Lungs: Clear to auscultation bilaterally. Abdomen: Benign. Extremities: Examination shows no signs of DVT. Neurologic: He is awake, alert, and oriented x4. Cranial nerve examination is intact II-XII except for tongue deviation towards the left. Motor examination shows 5/5 strength except mild/minimal drift of the left upper extremity. Sensory examination is intact to light touch and vibratory sensation. Deep tendon reflexes are hyporeflexive throughout. There is no pathologic long tract sign. His toes are downgoing. Gait is not tested for safety reasons. LABORATORY: Examination shows white blood cell count to be 6400, hemoglobin is 15, and platelet count is 257,000. INR is 1.03 and PT is 36.7. Serum sodium is 142 and potassium is 3.2, BUN 9, creatinine 1.1. Troponin is 0.05. Urinalysis shows high ketones. CT scan of the head demonstrates right putaminal hemorrhage approximately 1.5 x 4 cm in the [id number] direction. There is some mixed density posteriorly. There is mild mass effect and a 2- to 3-mm [id number] midline shift. IMPRESSION: Acute right putaminal hypertensive hemorrhage. RECOMMENDATION: The patient presents with acute right putaminal hypertensive hemorrhage. His blood pressure is much better controlled since he has been hospitalized. He remains on a Cardene drip. PT is marginally elevated at worst. INR is normal. Platelet count is also normal. Any antiplatelet agents and anticoagulation should be held at this time. No anticonvulsant is recommended. A followup CT scan should be done today to ascertain stability of the CT scan finding. Since he is minimally symptomatic neurologically at this time, he has no headache or symptoms from increased cranial pressure, no neurosurgical intervention is recommended nor indicated. Patient understands the above treatment plan. His blood pressures are continuing to be monitored and controlled. All questions were answered at bedside. KAN JAMESON M.D. [id number] MTDD
--- NOTE | 2017-03-16 14:25 | EKG ---
Test Reason : Blood Pressure : / mmHG Vent. Rate : 073 BPM Atrial Rate : 375 BPM P-R Int : 000 ms QRS Dur : 078 ms QT Int : 396 ms P-R-T Axes : 000 -22 024 degrees QTc Int : 436 ms ATRIAL FIBRILLATION NONSPECIFIC ST ABNORMALITY ABNORMAL ECG WHEN COMPARED WITH ECG OF 15-MAR-2017 14:10, ATRIAL FIBRILLATION HAS REPLACED SINUS RHYTHM CLINICAL CORRELATION IS RECOMMENDED Confirmed by ANDREW PETERSON, MARY ([id number]) on 03/16/2017 2:25:06 PM Referred By: Confirmed By:MARY MORALES MD
--- NOTE | 2017-03-16 16:45 | PN ---
Physical Exam: SUBJECTIVE: Patient seen and examined. He has no complaints. OBJECTIVE: Vital Signs Period Temp Pulse Resp BP Sys/Alba Pulse Ox Last 24 Hr 98.0 F-98.6 F 61-78 16-20 121-169/68-106 98-99 GENERAL: The patient is awake, alert, and fully oriented, in no acute distress. LUNGS: Breath sounds equal, clear to auscultation bilaterally, no wheezes, no crackles, no accessory muscle use. HEART: Regular rate and rhythm, S1, S2 without murmur, rub or gallop. ABDOMEN: Soft, nontender, nondistended, normoactive bowel sounds, no guarding, no rebound, no hepatosplenomegaly, no masses. EXTREMITIES: 2+ pulses, warm, well-perfused, no edema. NEUROLOGICAL: Cranial nerves II through XII grossly intact. Normal speech, normal strength and sensation, gait not observed. Laboratory Results - last 24 hr 03/15/17 03/15/17 03/16/17 19:18 23:29 05:25 WBC 6.4 RBC 4.93 Hgb 15.0 Hct 45.1 MCV 91.4 MCHC 33.3 RDW 13.4 Plt Count 257 MPV 8.3 Neutrophils % 67.2 Lymphocytes % 16.9 Monocytes % 10.9 H Eosinophils % 4.4 Basophils % 0.6 INR PTT (Actin FS) Sodium Potassium Chloride Carbon Dioxide Anion Gap BUN Creatinine Creat Clearance w eGFR POC Glucometer 90.77661 Random Glucose Hemoglobin A1c % Calcium Phosphorus Magnesium Total Bilirubin AST ALT Alkaline Phosphatase Creatine Kinase Troponin I Total Protein Albumin Urine Color Colorless Urine Appearance Clear Urine pH 8.0 Ur Specific [place] 1.005 Urine Protein Negative Urine Glucose (UA) Negative Urine Ketones Trace H Urine Blood Negative Urine Nitrite Negative Urine Bilirubin Negative Urine Urobilinogen Negative Ur Leukocyte Esterase Negative 03/16/17 03/16/17 03/16/17 05:25 05:25 05:25 WBC RBC Hgb Hct MCV MCHC RDW Plt Count MPV Neutrophils % Lymphocytes % Monocytes % Eosinophils % Basophils % INR 1.03 PTT (Actin FS) 36.7 H Sodium 142 Potassium 3.2 L Chloride 104 Carbon Dioxide 27 Anion Gap 11 BUN 9 D Creatinine 1.1 D Creat Clearance w eGFR > 60 POC Glucometer Random Glucose 74 Hemoglobin A1c % 5.7 Calcium 8.2 L Phosphorus 2.5 Magnesium 2.0 Total Bilirubin 0.8 D AST 18 ALT 19 Alkaline Phosphatase 63 Creatine Kinase 136 Troponin I 0.05 D Total Protein 7.2 Albumin 3.8 Urine Color Urine Appearance Urine pH Ur Specific [place] Urine Protein Urine Glucose (UA) Urine Ketones Urine Blood Urine Nitrite Urine Bilirubin Urine Urobilinogen Ur Leukocyte Esterase 03/16/17 03/16/17 05:40 12:23 WBC RBC Hgb Hct MCV MCHC RDW Plt Count MPV Neutrophils % Lymphocytes % Monocytes % Eosinophils % Basophils % INR PTT (Actin FS) Sodium Potassium Chloride Carbon Dioxide Anion Gap BUN Creatinine Creat Clearance w eGFR POC Glucometer 91.87452 90.19792 Random Glucose Hemoglobin A1c % Calcium Phosphorus Magnesium Total Bilirubin AST ALT Alkaline Phosphatase Creatine Kinase Troponin I Total Protein Albumin Urine Color Urine Appearance Urine pH Ur Specific [place] Urine Protein Urine Glucose (UA) Urine Ketones Urine Blood Urine Nitrite Urine Bilirubin Urine Urobilinogen Ur Leukocyte Esterase Active Medications Generic Name Dose Route Start Last Admin Trade Name Freq PRN Reason Stop Dose Admin Chlorhexidine Gluconate 1 applic 03/15/17 22:00 03/15/17 21:30 Hibiclens For Decolonization - TP 1 applic HS NIRAJ Administration Nicardipine HCl 25 mg/ 250 mls @ 25 mls/hr 03/15/17 15:15 03/16/17 07:25 Dextrose IVPB 1 mg/hr TITR NIRAJ Titration Protocol 2.5 MG/HR Sodium Chloride 1,000 mls @ 100 mls/hr 03/15/17 19:01 03/15/17 19:09 Normal Saline - IV 100 mls/hr ASDIR NIRAJ Administration Insulin Aspart 1 vial 03/15/17 18:00 03/16/17 13:05 Novolog Vial Sliding Scale - SQ Not Given Q6HPO NIRAJ Protocol Mupirocin 1 applic 03/15/17 22:00 03/15/17 21:30 Bactroban Ointment (For Decolonization) - NS 03/20/17 21:59 1 applic BID NIRAJ Administration ASSESSMENT/PLAN: This is a 71-year-old man with a history of HTN who presented to the ER on 03/15 with left facial droop and left sided weakness. He was found to have BP 232/112 and right internal capsule hemorrhage. 1. 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 Uncontrolled HTN - Continue Nicardipine drip 3. Paroxysmal atrial fibrillation - Currently in sinus rhythm 4. Hypokalemia - Replete potassium Visit type - Emergency Visit Emergency Visit: Yes ED Registration Date: 03/15/17 Care time: The patient presented to the Emergency Department on the above date and was hospitalized for further evaluation of their emergent condition. - New Patient This patient is new to me today: No - Critical Care Critical Care patient: No - Discharge Referral Referred to [facility] No
[2017-03-16] MEDS: NICARDIPINE 25 MG in DEXTROSE 5%-WATER - 240 ML IVPB SCH (17:12)
[2017-03-16] MEDS: SODIUM CHLORIDE 1,000 ML IV SCH (20:00)
[2017-03-16] MEDS: CHLORHEXIDINE GLUCONATE 4% CLEANSER FOR DECOLONIZATION TP SCH (22:15)
[2017-03-17] MEDS ORDERED: niCARdipine HCL 25 MG/10 ML AMPUL IVPB ONE (01:13)
[2017-03-17] MEDS: INSULIN SLIDING SCALE (NOVOLOG) 1 VIAL SQ SCH ×4 (01:36→22:42)
[2017-03-17] MEDS: NICARDIPINE 25 MG in DEXTROSE 5%-WATER - 240 ML IVPB SCH (06:00)
[2017-03-17 06:04] LABS: MCH 30.4 pg (25.7-33.7); MCHC 33.2 g/dl (32.0-35.9); MEAN CELL VOLUME 91.3 fl (80-96); MEAN PLT VOLUME 8.5 fl (7.5-11.1); PLATELET COUNT 261 K/MM3 (134-434); RDW 13.2 % (11.9-15.9); WHITE BLOOD COUNT 7.2 K/mm3 (4.0-10.0)
[2017-03-17 06:50] LABS: COCKROFT - GAULT 44.17; CREATININE 1.3 mg/dL (0.7-1.3)
[2017-03-17] MEDS: MUPIROCIN 2% TOPICAL OINTMENT FOR DECOLONIZATION NS SCH ×2 (10:00→22:42)
--- NOTE | 2017-03-17 10:06 | CONSULT ---
Admitting History and Physical - Primary Care Physician PCP: Zachery Holden - Admission History of Present Illness: 71-year-old gentleman with PMH of HTN, presented to the ER on 03/15 with left facial droop/ left sided weakness, elevated BP 232/112 and right internal capsule hemorrhage noted on CT of head.. Pt reports coughing on thin liquid in ER, with some coughing in ICU as well but improved. He reports h/o dysphagia premorbidly, with hard solids sticking in his throat and inability to drink continuously, with an "uncomfortable" feeling. - Past Medical History Cardiovascular: Yes: HTN, Hyperlipdemia - Smoking History Smoking history: Never smoked Have you smoked in the past 12 months: No If you are a former smoker, when did you quit?: 2006 - Alcohol/Substance Use Hx Alcohol Use: No - Social History Usual Living Arrangement: Yes: With Spouse History of Recent Travel: No History - Admission Reason For Visit: INTRACRANIAL HEMORRHAGE - Diagnostics X-ray: Report Reviewed CT Scan: Report Reviewed - General Mental Status: Alert and Oriented, Awake and Alert, Able to Follow Commands Attention: Intact Ability to Follow Directions: Excellent Head/Neck Control: WFL - Hearing Hearing: Normal Speech Evaluation - Communication Primary Language: TURKMEN Communication: Yes: Within Normal Limits Oral Expression Ability: Yes: No Impairment - Speech Production Able to Make Needs Known: Yes: WNL Intelligibility: Yes: WNL - Speech Characteristics Voice Loudness: Normal Voice Pitch: Yes: Normal Voice Phonatory-based Quality: Yes: Normal Speech Pattern: Normal Speech Clarity: < 100% Nasal Resonance: Normal Articulation: Yes: Precise Rate of Speech: Intact - Language/Auditory Comprehension Observation: Able to respond to yes/no queries: Yes, Yes/No Confusion: No, Comprehends Conversational Speech: Yes - Language/Verbal Expression Able to Respond to Simple Queries: Yes: WNL Able to Communicate Wants and Needs: Yes: WNL Functional Communication Status: Yes: WNL - Memory/Perception counsellors Memory: Yes: WNL Short Term Memory: Yes: WNL - Swallow Evaluation/Bedside Assessment Current Nutritional Intake: Dysphagia Pureed (He reports tolerating puree and thin liquid at this time. He is a vegetarian. Pt noted to take small careful sips of water.), Thin Liquids Oral Secretions: Yes: WFL Dentition: Yes: Adequate, Missing Teeth, Dental Appliance Lower Facial Symmetry at Rest: Facial Droop Left (mild) Facial Symmetry on Retraction: Facial Droop Left (slight) Sensation: Reduced Left (Left face noted with yogurt residue without awareness, indicative of reduced ledft facial sensation, as well as mild left facial weakness.) Against Resistance Opening: Normal Against Resistance Closing: Normal Pucker Lips: Droops Left (slight) Lingual Movement: Deviates Left, Reduced Tip Elevation Lingual Movement Strgth Against Opposition: Normal Lingual Movement Characteristics: Normal Laryngeal Movement: Able to Palpate, Labored,delay initiation Rate of Intake: WFL (slow, careful, small bites) Bolus Size: Small Labial Seal: WFL Oral Prep Time: WFL A-P Transit: WFL Pocketing: None Timing of Swallow: Delayed Coughing/Throat Clear: No Change in Voice: No Recommendations - Speech Evaluation, Impression/Plan Impression: h/o dysphagia premorbidly, with hard solids sticking in his throat and inability to drink continuously, with an "uncomfortable" feeling. Denies h/ o GI w/u, PNA, GERD. Impaired left facial sensation and mild droop. No overt cough with PO intake. - Dysphagia Impressions/Plan Dysphagia Impressions: Ongoing Evaluation *Silent aspiration: cannot be R/O at bedside Dysphagia Treatment Plan: Chin Tuck/Down, Head Turn Left, 1/2 tsp. at a time, Elevate HOB during feed Recommendations: Modified Barium Swallow (If cough, copngestion, fever spikes. May benefit. Can be done as out pt, if tolerates diet.) - Recommendations Diet Consistency: Regular (VEGETARIAN) Medication Administration: Whole with water Liquids: Thin Liquids
--- NOTE | 2017-03-17 10:37 | PN ---
Progress Note (short form) - Note Progress Note: Neurology History of Present Illness The patient is a 71 year old male, with a significant past medical history of hypertension, who presents to the emergency department via ems for left facial droop, left upper and lower extremity weakness. The patient [place] with friends who reported the patient developed some slurred speech and left sided facial droop, as well as, left upper and lower extremity weakness. The patient states he was recently taken off of his losartan. In ER, CT head completed right-sided internal capsular/intercerebral hemorrhage with minimal midline shift to the left. Jake Deluca consulted and no surigical intervention as patient exam intact. Past History - Past Medical History HTN: Yes - Psycho/Social/Smoking Cessation Hx Suicidal Ideation: No Smoking History: Never smoked Information on smoking cessation initiated: No - Past Medical History Allergies/Adverse Reactions: Allergies Allergy/AdvReac Type Severity Reaction Status Date / Time No Known Allergies Allergy Verified 03/15/17 13:36 Active Medications Chlorhexidine Gluconate (Hibiclens For Decolonization -) 1 applic TP HS NIRAJ Last Admin: 03/16/17 22:15 Dose: 1 applic Nicardipine HCl 25 mg/ (Dextrose) 250 mls @ 25 mls/hr IVPB TITR NIRAJ; 2.5 MG/HR PRN Reason: Protocol Last Admin: 03/17/17 06:00 Dose: 10 mls/hr Sodium Chloride (Normal Saline -) 1,000 mls @ 100 mls/hr IV ASDIR NIRAJ Last Admin: 03/16/17 20:00 Dose: 100 mls/hr Insulin Aspart (Novolog Vial Sliding Scale -) 1 vial SQ Q6HPO NIRAJ PRN Reason: Protocol Last Admin: 03/17/17 06:38 Dose: Not Given Mupirocin (Bactroban Ointment (For Decolonization) -) 1 applic NS BID NIRAJ Stop: 03/20/17 21:59 Last Admin: 03/16/17 22:00 Dose: 1 applic *Physical Exam Last Vital Signs Temp Pulse Resp BP Pulse Ox 98.0 F 74 16 123/75 98 03/16/17 06:00 03/16/17 07:25 03/16/17 06:00 03/16/17 07:25 03/15/17 20:00 GENERAL: Awake, alert, and oriented, in no acute distress HEAD: No signs of trauma EYES: PERRLA, EOMI, sclera anicteric, conjunctiva clear ENT: Auricles normal inspection, hearing grossly normal, nares patent, oropharynx clear without exudates. Moist mucosa NECK: Normal ROM, supple, no lymphadenopathy, JVD, or masses LUNGS: Breath sounds equal, clear to auscultation bilaterally. No wheezes, and no crackles HEART: Regular rate and rhythm, normal S1 and S2, no murmurs, rubs or gallops ABDOMEN: Soft, nontender, normoactive bowel sounds. No guarding, no rebound. No masses EXTREMITIES: no edema. No clubbing or cyanosis. No cords, erythema, or tenderness SKIN: Warm, Dry, normal turgor, no rashes or lesions noted. NEUROLOGICAL: CN intact, strength equal b/l, sensory normal, gait deferred CBCD WBC 7.2 K/mm3 (4.0-10.0) 03/17/17 05:15 RBC 4.72 M/mm3 (4.00-5.60) 03/17/17 05:15 Hgb 14.3 GM/dL (11.7-16.9) 03/17/17 05:15 Hct 43.1 % (35.4-49) 03/17/17 05:15 MCV 91.3 fl (80-96) 03/17/17 05:15 MCHC 33.2 g/dl (32.0-35.9) 03/17/17 05:15 RDW 13.2 % (11.9-15.9) 03/17/17 05:15 Plt Count 261 K/MM3 (134-434) 03/17/17 05:15 MPV 8.5 fl (7.5-11.1) 03/17/17 05:15 CMP Sodium 140 mmol/L (136-145) 03/17/17 05:15 Potassium 3.7 mmol/L (3.5-5.1) 03/17/17 05:15 Chloride 106 mmol/L (98-107) 03/17/17 05:15 Carbon Dioxide 25 mmol/L (21-32) 03/17/17 05:15 Anion Gap 9 (8-16) 03/17/17 05:15 BUN 14 mg/dL (7-18) D 03/17/17 05:15 Creatinine 1.3 mg/dL (0.7-1.3) 03/17/17 05:15 Creat Clearance w eGFR > 60 (>60) 03/16/17 05:25 Calcium 8.0 mg/dL (8.5-10.1) L 03/17/17 05:15 Total Bilirubin 0.8 mg/dL (0.2-1.0) D 03/16/17 05:25 AST 18 U/L (15-37) 03/16/17 05:25 ALT 19 U/L (12-78) 03/16/17 05:25 Alkaline Phosphatase 63 U/L (45-117) 03/16/17 05:25 Total Protein 7.2 g/dl (6.4-8.2) 03/16/17 05:25 Albumin 3.8 g/dl (3.4-5.0) 03/16/17 05:25 - Medical Decision Making 71 year old male, with a significant past medical history of hypertension, who presents to the emergency department via ems for left facial droop, left upper and lower extremity weakness. The patient presents [place] with friends who reported the patient developed some slurred speech and left sided facial droop, as well as, left upper and lower extremity weakness. The patient states he was recently taken off of his losartan. In ER, CT head completed right-sided internal capsular/intercerebral hemorrhage with minimal midline shift to the left. Jake JAMESON NSLevy consulted and no surigical intervention as patient exam intact. Repeat CT's have been stable. Based on size and location, etiology likely hypertensive. Tigher BP control recommended. Fall precautions. In ICU stable and symptomatic. Discussed holding any antiplatelets for at least one month.
--- NOTE | 2017-03-17 11:10 | PN ---
[id number]- NC/AT; Neck- supple; Cor- RRR; lungs- CTA B; Abd-benign; Ext- no sign of DVT CN- tongue deviation to L; Motor 5/5 with no/minimal L drift; Sensation- intact LT; DTR-hyporeflexic Head CT: R putamen ICH with posterior mixed density blood, approx 1.2 cm x 4 cm ; mild mass effect and mild R to L shift Hypertensive R putamen ICH with mild mass effect F/u head CT- no change R putamen ICH with mild mass effect BP control SBP < 160 DBP < 90 No neurosurgical intervention recommended given relatively intact exam and currently without significant symptoms Pt aware of care plans All questions answered
[2017-03-17] MEDS ORDERED: METOPROLOL TARTRATE 25 MG TABLET (FP) PO SCH (11:30)
--- NOTE | 2017-03-17 12:02 | PN ---
Teaching Attending Note Name of Resident: Yang Falk ATTENDING PHYSICIAN STATEMENT I saw and evaluated the patient. I reviewed the resident's note and discussed the case with the resident. I agree with the resident's findings and plan as documented. SUBJECTIVE: Pt seen and examined in the ICU. CT head unchanged. Denies headache, nausea or vomiting. Remains on cardene gtt. Currently in sinus rhythm. OBJECTIVE: Last Vital Signs Temp Pulse Resp BP Pulse Ox 98.2 F 73 18 142/75 98 03/17/17 07:00 03/17/17 07:00 03/17/17 07:00 03/17/17 07:00 03/16/17 21:00 Intake & Output 03/14/17 03/15/17 03/16/17 03/17/17 23:59 23:59 23:59 23:59 Intake Total 1425 1395 858 Output Total 1800 2000 Balance -375 -605 858 Weight 132 lb 2 oz 132 lb 2 oz 133 lb 14.4 oz Gen: NAD at rest Heart: RRR Lung: decreased breath sounds at the bases Abd: soft, nontender Ext: no edema Neuro: nonfocal CBC, BMP 03/17/17 05:15 03/17/17 05:15 Active Medications Carvedilol (Coreg -) 6.25 mg PO BID [facility] Chlorhexidine Gluconate (Hibiclens For Decolonization -) 1 applic TP HS [facility] Last Admin: 03/16/17 22:15 Dose: 1 applic Sodium Chloride (Normal Saline -) 1,000 mls @ 100 mls/hr IV ASDIR [facility] Last Admin: 03/16/17 20:00 Dose: 100 mls/hr Insulin Aspart (Novolog Vial Sliding Scale -) 1 vial SQ Q6HPO [facility] PRN Reason: Protocol Last Admin: 03/17/17 06:38 Dose: Not Given Mupirocin (Bactroban Ointment (For Decolonization) -) 1 applic NS BID [facility] Stop: 03/20/17 21:59 Last Admin: 03/16/17 22:00 Dose: 1 applic ASSESSMENT AND PLAN: Intracranial Hemorrhage Hypertensive Urgency Paroxysmsal Atrial Fibrillation now in sinus Hyperlipidemia - BP control, keep BP <160/90 - start PO meds for BP, titrate off cardene gtt - neuro checks - PO as tolerated - replete lytes - echocardiogram - PT/rehab/swallow eval - DVT prophylaxis - can monitor on telemetry
[2017-03-17] MEDS: CARVEDILOL 6.25 MG TABLET (FP) PO SCH ×2 (12:15→22:44)
--- NOTE | 2017-03-17 12:36 | PN ---
Physical Exam: SUBJECTIVE: Patient seen and examined Pt is awake, alert and fully oriented No dizziness or confusion no headache no blurred or double vision no numbness or tingling no n/v no chest pain, palpitation or sob OBJECTIVE: Vital Signs Period Temp Pulse Resp BP Sys/Alba Pulse Ox Last 24 Hr 98 F-98.2 F 61-84 13-22 104-159/75-94 98 GENERAL: Awake, alert, and fully oriented, in no acute distress. HEAD: Normal with no signs of trauma. EYES: Pupils equal, round and reactive to light, extraocular movements intact, sclera anicteric, conjunctiva clear. No lid lag. EARS, NOSE, THROAT: Ears normal, nares patent, oropharynx clear without exudates. Moist mucous membranes. LUNGS: Breath sounds equal, clear to auscultation bilaterally. No wheezes, and no crackles. No accessory muscle use. HEART: irregular rate and rhythm, normal S1 and S2 without murmur, rub or gallop. ABDOMEN: Soft, nontender, not distended, normoactive bowel sounds, no guarding, no rebound, no masses. No hepatomegaly or splenomegaly. MUSCULOSKELETAL: Normal range of motion at all joints. No bony deformities or tenderness. No CVA tenderness. UPPER EXTREMITIES: 2+ pulses, warm, well-perfused. No cyanosis. No clubbing. No peripheral edema. LOWER EXTREMITIES: 2+ pulses, warm, well-perfused. No calf tenderness. No peripheral edema. NEUROLOGICAL: Alert, awake, appropriate. Cranial nerves 2-12 intact. left facial droop improved. still seen on facial movement, no uvula, tongue, palate deviation. No deficits to light touch and temperature in face, upper extremities and lower extremities. motor deficits in the in left face, left upper extremities 4.5/5 while right upper ext 5/5 strength and lower extremities 5/5 rigth and 5/5 left. Normoreflexic in all ext . Slurred speech resolving. Toes are down-going bilaterally. Gait not observed PSYCHIATRIC: Cooperative. Good eye contact. Appropriate mood and affect. SKIN: Warm, dry, normal turgor, no rashes or lesions noted, normal capillary refill. Laboratory Results - last 24 hr 03/16/17 03/16/17 03/16/17 05:25 12:23 20:29 WBC RBC Hgb Hct MCV MCHC RDW Plt Count MPV Sodium Potassium Chloride Carbon Dioxide Anion Gap BUN Creatinine POC Glucometer 90.36946 79.71811 Random Glucose Hemoglobin A1c % 5.7 Calcium 03/17/17 03/17/17 03/17/17 01:35 05:15 05:15 WBC 7.2 RBC 4.72 Hgb 14.3 Hct 43.1 MCV 91.3 MCHC 33.2 RDW 13.2 Plt Count 261 MPV 8.5 Sodium 140 Potassium 3.7 Chloride 106 Carbon Dioxide 25 Anion Gap 9 BUN 14 D Creatinine 1.3 POC Glucometer 128.21851 Random Glucose 76 Hemoglobin A1c % Calcium 8.0 L 03/17/17 06:24 WBC RBC Hgb Hct MCV MCHC RDW Plt Count MPV Sodium Potassium Chloride Carbon Dioxide Anion Gap BUN Creatinine POC Glucometer 83.95354 Random Glucose Hemoglobin A1c % Calcium Active Medications Generic Name Dose Route Start Last Admin Trade Name Freq PRN Reason Stop Dose Admin Carvedilol 6.25 mg 03/17/17 12:00 Coreg - PO BID NIRAJ Chlorhexidine Gluconate 1 applic 03/15/17 22:00 03/16/17 22:15 Hibiclens For Decolonization - TP 1 applic HS NIRAJ Administration Sodium Chloride 1,000 mls @ 100 mls/hr 03/15/17 19:01 03/16/17 20:00 Normal Saline - IV 100 mls/hr ASDIR NIRAJ Administration Insulin Aspart 1 vial 03/15/17 18:00 03/17/17 06:38 Novolog Vial Sliding Scale - SQ Not Given Q6HPO [facility] Protocol Mupirocin 1 applic 03/15/17 22:00 03/16/17 22:00 Bactroban Ointment (For Decolonization) - NS 03/20/17 21:59 1 applic BID NIRAJ Administration CBC, BMP 03/17/17 05:15 03/17/17 05:15 ASSESSMENT/PLAN: 71 year old male with pmh of HTN, hyperlipidemia who recently went off his Losartan present to the emergency department with left arm weakness. Pt was found to have intracranial hemorrhage. Intracranial Hemorrhage likely due HTN CT head showed Right internal capsular/intracerebral hemorrhage with minimal midline shift to the left Pt came in with BP 232/112, MAP>152 Pt placed on Nicardipine drip goal less 160/90, avoid hypotension Speech therapy consult Watch for Increased ICP watch for [place] reflex ( hypertension and bradycardia ) keep HOB elevated 30-45 degrees Aspiration precaution Neurocheck q2h GCS q2h HGA1C 5.7 BGM q6h Novolog sliding scale, avoid hypoglycemia, Goal Blood sugar 140-[address] Rocha Neurology consulted Dr keith Pt has clinically improved, less faciual droop, less left sided weakness, strength almost at baseline repeat CT head showed no progression of ICH Start PO medication for BP control wean of cardene drip New onset AFIB reverted to Sinus rhythm ECho done, pending reading Cardio consult NO anticoagulation due to hemorrhagic stroke Consider cardizem 10mg prn IV consider metoprolol 5mg IV prn FEN Fluid:NS 100ml/h Electrolytes: no abdnormality Nutrition : Dysphagia purre diet pending speech eval by Deconditioning: PT/OT DVT prophylaxis: SCD Disposition: keep in ICU, wean off cardene drip. Visit type - Emergency Visit Emergency Visit: Yes ED Registration Date: 03/15/17 Care time: The patient presented to the Emergency Department on the above date and was hospitalized for further evaluation of their emergent condition. - New Patient This patient is new to me today: Yes - Critical Care Critical Care patient: No - Discharge Referral Referred to [facility] Med [facility] No
[2017-03-17] MEDS: NIFEdipine E.R. 30 MG TABLET (FP) PO SCH (16:19)
--- NOTE | 2017-03-17 16:32 | PN ---
Teaching Attending Note Name of Resident: Erik Pryor ATTENDING PHYSICIAN STATEMENT I saw and evaluated the patient. I reviewed the resident's note and discussed the case with the resident. I agree with the resident's findings and plan as documented. SUBJECTIVE: Patient is doing well. No complaints. OBJECTIVE: Vital Signs Period Temp Pulse Resp BP Sys/Alba Pulse Ox Last 24 Hr 98 F-98.2 F 61-84 15-22 104-159/75-91 98 GENERAL: The patient is awake, alert, and fully oriented, in no acute distress. LUNGS: Breath sounds equal, clear to auscultation bilaterally, no wheezes, no crackles, no accessory muscle use. HEART: Regular rate and rhythm, S1, S2 without murmur, rub or gallop. ABDOMEN: Soft, nontender, nondistended, normoactive bowel sounds, no guarding, no rebound, no hepatosplenomegaly, no masses. EXTREMITIES: 2+ pulses, warm, well-perfused, no edema. NEUROLOGICAL: Cranial nerves II through XII grossly intact. Normal speech, normal strength and sensation, gait not observed. ASSESSMENT AND PLAN: This is a 71-year-old man with a history of HTN who presented to the ER on 03/15 with left facial droop and left sided weakness. He was found to have BP 232/112 and right internal capsule hemorrhage. 1. 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 Uncontrolled HTN - Coreg started - Wean Nicardipine drip 3. Paroxysmal atrial fibrillation - Remains in sinus rhythm 4. Hypokalemia - Improved
[2017-03-17] MEDS ORDERED: CARVEDILOL 6.25 MG TABLET (FP) PO ONE (17:19)
--- NOTE | 2017-03-17 18:56 | PN ---
Physical Exam: SUBJECTIVE: Patient seen and examined at bed side in ICU. patient sitting comfortably in no acute distress. Family on its side. on cardene gtt. sinus rhythm denies cp, sob, CLEMENT,blurred vision, dizziness, fevers, chills, N/V/D. OBJECTIVE: Vital Signs Period Temp Pulse Resp BP Sys/Alba Pulse Ox Last 24 Hr 98 F-98.2 F 61-84 15-22 112-159/75-91 98 GENERAL: Awake, alert, and fully oriented, in no acute distress. HEAD: Normal with no signs of trauma. EYES: Pupils equal, round and reactive to light, extraocular movements intact, sclera anicteric, conjunctiva clear. No lid lag. EARS, NOSE, THROAT: Ears normal, nares patent, oropharynx clear without exudates. Moist mucous membranes. LUNGS: Breath sounds equal, clear to auscultation bilaterally. No wheezes, and no crackles. No accessory muscle use. HEART: irregular rate and rhythm, normal S1 and S2 without murmur, rub or gallop. ABDOMEN: Soft, nontender, not distended, normoactive bowel sounds, no guarding, no rebound, no masses. No hepatomegaly or splenomegaly. MUSCULOSKELETAL: Normal range of motion at all joints. No bony deformities or tenderness. No CVA tenderness. LOWER EXTREMITIES: 2+ pulses, warm, well-perfused. No calf tenderness. No peripheral edema. NEUROLOGICAL: Left facial droop improved. still seen on facial movement, no uvula, tongue, palate deviation. No deficits to light touch and temperature in face, upper extremities and lower extremities. motor deficits in the in left face, left upper extremities 4.5/5 while right upper ext 5/5 strength and lower extremities 5/5 rigth and 5/5 left. Normoreflexic in all ext. Slurred speech resolving. Toes are down-going bilaterally. Gait not observed. PSYCHIATRIC: Cooperative. Good eye contact. Appropriate mood and affect. SKIN: Warm, dry, normal turgor, no rashes or lesions noted, normal capillary refill. Laboratory Results - last 24 hr 03/16/17 03/17/17 03/17/17 20:29 01:35 05:15 WBC 7.2 RBC 4.72 Hgb 14.3 Hct 43.1 MCV 91.3 MCHC 33.2 RDW 13.2 Plt Count 261 MPV 8.5 Sodium Potassium Chloride Carbon Dioxide Anion Gap BUN Creatinine POC Glucometer 79.91873 128.45520 Random Glucose Calcium 03/17/17 03/17/17 03/17/17 05:15 06:24 11:53 WBC RBC Hgb Hct MCV MCHC RDW Plt Count MPV Sodium 140 Potassium 3.7 Chloride 106 Carbon Dioxide 25 Anion Gap 9 BUN 14 D Creatinine 1.3 POC Glucometer 83.42946 134.80499 Random Glucose 76 Calcium 8.0 L Active Medications Active Medications Generic Name Dose Route Start Last Admin Trade Name Freq PRN Reason Stop Dose Admin Atorvastatin Calcium 40 mg 03/17/17 22:00 Lipitor - PO HS NIRAJ Carvedilol 6.25 mg 03/17/17 12:00 03/17/17 12:15 Coreg - PO 6.25 mg BID [facility] Administration Chlorhexidine Gluconate 1 applic 03/15/17 22:00 03/16/17 22:15 Hibiclens For Decolonization - TP 1 applic HS [facility] Administration Sodium Chloride 1,000 mls @ 100 mls/hr 03/15/17 19:01 03/16/17 20:00 Normal Saline - IV 100 mls/hr ASDIR NIR[facility] Administration Insulin Aspart 1 vial 03/15/17 18:00 03/17/17 12:00 Novolog Vial Sliding Scale - SQ Not Given Q6HPO [facility] Protocol Mupirocin 1 applic 03/15/17 22:00 03/17/17 10:00 Bactroban Ointment (For Decolonization) - NS 03/20/17 21:59 1 applic BID [facility] Administration Nifedipine 30 mg 03/17/17 15:15 03/17/17 16:19 Procardia Xl - PO 30 mg DAILY NIRAJ Administration ASSESSMENT/PLAN: 71 year old male, with a significant past medical history of hypertension, who presents to the emergency department via ems for left facial droop, left upper and lower extremity weakness. Found to have Hypertensive Urgency, Intra cranial hemorrhage, on Head CT: R putamen ICH with posterior mixed density blood , approx 1.2 cm x 4 cm; mild mass effect and mild R to L shift, Hypertensive R putamen ICH with mild mass effect Intra cranial hemorrhage -F/u head CT- no change R putamen ICH with mild mass effect-Pt has clinically improved, less faciual droop, less left sided weakness , strength almost at baseline BP control SBP < 160 DBP < 90 Titrate off cardene gtt Start PO Coreg and Procardia Xl for BP control No neurosurgical intervention recommended given relatively intact exam and currently without significant symptoms Pt aware of care plans neuro checks Speech therapy consult watch for [place] reflex ( hypertension and bradycardia ) keep HOB elevated 30-45 degrees Aspiration precaution Neurocheck q2h HGA1C 5.[address] Aj [email or web address] no surgical intervention at this time. Hyperlipidemia start lipitor 40mg New onset Paroxysmsal AFIB- converted to NS yesterday. ECho done, pending reading Cardio consult NO anticoagulation due to hemorrhagic stroke started Carvedilol FEN oral hydration, d/c IVF Electrolytes: no abdnormality Nutrition : Dysphagia purre diet pending speech eval by Deconditioning: PT/OT DVT prophylaxis: SCD Dispo: can transfer to tele floor. Visit type - Emergency Visit Emergency Visit: Yes ED Registration Date: 03/15/17 Care time: The patient presented to the Emergency Department on the above date and was hospitalized for further evaluation of their emergent condition. - New Patient This patient is new to me today: Yes Date on this admission: 03/15/17 - Critical Care Critical Care patient: Yes Total Critical Care Time (in minutes): 43 Critical Care Statement: The care of this patient involved high complexity decision making to prevent further life threatening deterioration of the patient 's condition and/or to evalute & treat vital organ system(s) failure or risk of failure.
[2017-03-17] MEDS: CHLORHEXIDINE GLUCONATE 4% CLEANSER FOR DECOLONIZATION TP SCH (22:42)
[2017-03-17] MEDS: SODIUM CHLORIDE 1,000 ML IV SCH (22:42)
[2017-03-17] MEDS: ATORVASTATIN CA 40 MG TABLET (FP) PO SCH (22:44)
[2017-03-18] MEDS: INSULIN SLIDING SCALE (NOVOLOG) 1 VIAL SQ SCH ×4 (03:31→22:22)
[2017-03-18 06:39] LABS: MCH 31.1 pg (25.7-33.7); MCHC 34.5 g/dl (32.0-35.9); MEAN CELL VOLUME 90.2 fl (80-96); MEAN PLT VOLUME 8.5 fl (7.5-11.1); PLATELET COUNT 251 K/MM3 (134-434); RDW 13.1 % (11.9-15.9); WHITE BLOOD COUNT 7.9 K/mm3 (4.0-10.0)
[2017-03-18 06:46] LABS: CALCIUM 8.7 mg/dL (8.5-10.1); CREATININE 1.5 mg/dL (0.7-1.3); MAGNESIUM 1.9 mg/dL (1.8-2.4)
--- NOTE | 2017-03-18 08:09 | PN ---
Physical Exam: SUBJECTIVE: Patient seen and examined at bed side in ICu feeling well, NAD. patient request to go home. denies CLEMENT, lightheadedness, cp, sob, N/V/D/C. OBJECTIVE: Vital Signs Period Temp Pulse Resp BP Sys/Alba Pulse Ox Last 24 Hr 97.6 F-98.2 F 59-89 14-18 120-176/67-103 98 GENERAL: Awake, alert, and fully oriented, in no acute distress. sitting in bed eating. HEAD: Normal with no signs of trauma. EYES: Pupils equal, round and reactive to light, extraocular movements intact, sclera anicteric, conjunctiva clear. EARS, NOSE, THROAT: Ears normal, nares patent, oropharynx clear without exudates. Moist mucous membranes. LUNGS: Breath sounds equal, clear to auscultation bilaterally. No wheezes, and no crackles. No accessory muscle use. HEART: irregular rate and rhythm, normal S1 and S2 without murmur, rub or gallop. ABDOMEN: Soft, nontender, not distended, normoactive bowel sounds, no guarding, no rebound, no masses. No hepatomegaly or splenomegaly. MUSCULOSKELETAL: Normal range of motion at all joints. No bony deformities or tenderness. No CVA tenderness. LOWER EXTREMITIES: 2+ pulses, warm, well-perfused. No calf tenderness. No peripheral edema. NEUROLOGICAL: Left facial droop improved. still seen on facial movement, no uvula, tongue, palate deviation. No deficits to light touch and temperature in face, upper extremities and lower extremities. motor deficits in the in left face improved , left upper extremities 5/5 while right upper ext 5/5 strength and lower extremities 5/5 rigth and 5/5 left. Normoreflexic in all ext. Slurred speech resolving improved . Toes are down-going bilaterally. Gait not observed. PSYCHIATRIC: Cooperative. Good eye contact. Appropriate mood and affect. SKIN: Warm, dry, normal turgor, no rashes or lesions noted, normal capillary refill. Laboratory Results - last 24 hr 03/17/17 03/17/17 03/18/17 11:53 22:40 05:15 WBC 7.9 RBC 4.60 Hgb 14.3 Hct 41.5 MCV 90.2 MCHC 34.5 RDW 13.1 Plt Count 251 MPV 8.5 Sodium Potassium Chloride Carbon Dioxide Anion Gap BUN Creatinine POC Glucometer 134.17368 157.17945 Random Glucose Calcium Phosphorus Magnesium 03/18/17 03/18/17 05:15 05:33 WBC RBC Hgb Hct MCV MCHC RDW Plt Count MPV Sodium 138 Potassium 3.8 Chloride 101 Carbon Dioxide 28 Anion Gap 9 BUN 14 Creatinine 1.5 H POC Glucometer 100.95259 Random Glucose 87 Calcium 8.7 Phosphorus 3.0 Magnesium 1.9 Active Medications Generic Name Dose Route Start Last Admin Trade Name Bello PRN Reason Stop Dose Admin Atorvastatin Calcium 40 mg 03/17/17 22:00 03/17/17 22:44 Lipitor - PO 40 mg HS NIRAJ Administration Carvedilol 6.25 mg 03/17/17 12:00 03/17/17 22:44 Coreg - PO 6.25 mg BID NIRAJ Administration Chlorhexidine Gluconate 1 applic 03/15/17 22:00 03/17/17 22:42 Hibiclens For Decolonization - TP 1 applic HS NIRAJ Administration Sodium Chloride 1,000 mls @ 100 mls/hr 03/15/17 19:01 03/17/17 22:42 Normal Saline - IV Not Given ASDIR [facility] Insulin Aspart 1 vial 03/15/17 18:00 03/18/17 06:10 Novolog Vial Sliding Scale - SQ Not Given Q6HPO [facility] Protocol Mupirocin 1 applic 03/15/17 22:00 03/17/17 22:42 Bactroban Ointment (For Decolonization) - NS 03/20/17 21:59 1 applic BID NIRAJ Administration Nifedipine 30 mg 03/17/17 15:15 03/17/17 16:19 Procardia Xl - PO 30 mg DAILY NIRAJ Administration ASSESSMENT/PLAN: 71 year old male, with a significant past medical history of hypertension, who presents to the emergency department via ems for left facial droop, left upper and lower extremity weakness. Found to have Hypertensive Urgency, Intra cranial hemorrhage, on Head CT: R putamen ICH with posterior mixed density blood , approx 1.2 cm x 4 cm; mild mass effect and mild R to L shift, Hypertensive R putamen ICH with mild mass effect Intra cranial hemorrhage -F/u head CT- no change R putamen ICH with mild mass effect-Pt has clinically improved, less faciual droop, less left sided weakness , strength almost at baseline BP control SBP < 160 DBP < 90 Start PO Coreg and Procardia Xl for BP control neuro checks Speech therapy consult watch for [place] reflex ( hypertension and bradycardia ) keep HOB elevated 30-45 degrees Aspiration precaution Neurocheck q2h HGA1C 5.[address] Rocha appreciated no surgical intervention at this time. Hyperlipidemia Start Lipitor 40mg GEETA: started IVF New onset Paroxysmsal AFIB- converted to NS yesterday. ECho done, pending reading Cardio consult NO anticoagulation due to hemorrhagic stroke started Carvedilol FEN oral hydration, started IVNC 75cc/hr Electrolytes: no abdnormality Nutrition : Dysphagia purre diet pending speech eval by Deconditioning: PT/OT DVT prophylaxis: SCD Dispo: can transfer to tele floor. Visit type - Emergency Visit Emergency Visit: Yes ED Registration Date: 03/15/17 Care time: The patient presented to the Emergency Department on the above date and was hospitalized for further evaluation of their emergent condition. - New Patient This patient is new to me today: No - Critical Care Critical Care patient: Yes Total Critical Care Time (in minutes): 43 Critical Care Statement: The care of this patient involved high complexity decision making to prevent further life threatening deterioration of the patient 's condition and/or to evalute & treat vital organ system(s) failure or risk of failure.
--- NOTE | 2017-03-18 08:24 | PN ---
Progress Note (short form) - Note Progress Note: NEUROSURGERY No H/A, N/V or any other complaint PE: AF, BP better on oral antihypertensives Off cardene drop A/A/Ox4 HEENT- NC/AT; Neck- supple; Cor- RRR; lungs- CTA B; Abd-benign; Ext- no sign of DVT CN- tongue mild deviation to L; Motor 5/5 with no drift; Sensation- intact LT; DTR-hyporeflexic Head CT: R putamen ICH with posterior mixed density blood, approx 1.2 cm x 4 cm ; mild mass effect and mild R to L shift Hypertensive R putamen ICH with mild mass effect F/u head CT- no change R putamen ICH with mild mass effect BP control SBP < 160 DBP < 90 Pt aware of care plans Rehab likely beneficial
[2017-03-18] MEDS: MUPIROCIN 2% TOPICAL OINTMENT FOR DECOLONIZATION NS SCH ×2 (10:00→22:23)
--- NOTE | 2017-03-18 10:24 | PN ---
Progress Note, WORD PROCESSING SPECIALIST - Note Progress Note: Selected Entries 03/17/17 03/17/17 03/17/17 03:00 07:00 10:00 Diet Tolerated Fair Supper 75% Temperature 98 F 98.2 F 03/17/17 03/17/17 03/18/17 15:00 23:00 02:00 Diet Tolerated Supper Temperature 98 F 97.6 F 98.2 F Diet upgraded to reg, vegetarian diet with thin liquids,Tolerating diet upgrade well with good appetite. Left facial improving. Tongue with left deviation.
[2017-03-18] MEDS: NIFEdipine E.R. 30 MG TABLET (FP) PO SCH ×2 (11:01→12:00)
[2017-03-18] MEDS: CARVEDILOL 6.25 MG TABLET (FP) PO SCH ×2 (11:01→22:25)
[2017-03-18] MEDS ORDERED: SODIUM CHLORIDE 1,000 ML IV SCH (12:00)
[2017-03-18] MEDS ORDERED: NIFEdipine E.R 60 MG TABLET (UD) PO SCH (12:00)
--- NOTE | 2017-03-18 12:15 | PN ---
Teaching Attending Note Name of Resident: Yang Falk ATTENDING PHYSICIAN STATEMENT I saw and evaluated the patient. I reviewed the resident's note and discussed the case with the resident. I agree with the resident's findings and plan as documented. SUBJECTIVE: Pt seen and examined in the ICU. Remains neurologically intact. Denies headache , nausea or vomiting. Remains in sinus rhythm. OBJECTIVE: Last Vital Signs Temp Pulse Resp BP Pulse Ox 98.6 F 68 16 130/82 98 03/18/17 10:00 03/18/17 10:00 03/18/17 10:00 03/18/17 10:00 03/17/17 09:00 Intake & Output 03/15/17 03/16/17 03/17/17 03/18/17 23:59 23:59 23:59 23:59 Intake Total 1425 1395 1288 150 Output Total 1800 2000 1300 Balance -375 -605 -12 150 Weight 132 lb 2 oz 132 lb 2 oz 133 lb 14.4 oz 136 lb 10.986 oz Gen: NAD at rest Heart: RRR Lung: decreased breath sounds at the bases Abd: soft, nontender Ext: no edema Neuro: nonfocal CBC, BMP 03/18/17 05:15 03/18/17 05:15 Active Medications Atorvastatin Calcium (Lipitor -) 40 mg PO HS [facility] Last Admin: 03/17/17 22:44 Dose: 40 mg Carvedilol (Coreg -) 6.25 mg PO BID [facility] Last Admin: 03/18/17 11:01 Dose: 6.25 mg Chlorhexidine Gluconate (Hibiclens For Decolonization -) 1 applic TP HS [facility] Last Admin: 03/17/17 22:42 Dose: 1 applic Sodium Chloride (Normal Saline -) 1,000 mls @ 100 mls/hr IV ASDIR NIR[facility] Last Admin: 03/17/17 22:42 Dose: Not Given Sodium Chloride (Normal Saline -) 1,000 mls @ 75 mls/hr IV ASDIR NIRAJ Insulin Aspart (Novolog Vial Sliding Scale -) 1 vial SQ Q6HPO [facility] PRN Reason: Protocol Last Admin: 03/18/17 06:10 Dose: Not Given Mupirocin (Bactroban Ointment (For Decolonization) -) 1 applic NS BID [facility] Stop: 03/20/17 21:59 Last Admin: 03/17/17 22:42 Dose: 1 applic Nifedipine (Procardia Xl -) 60 mg PO DAILY NIRAJ ASSESSMENT AND PLAN: Intracranial Hemorrhage Hypertensive Urgency Paroxysmsal Atrial Fibrillation now in sinus Hyperlipidemia Acute Kidney Injury - BP control, keep BP <160/90 - increase procardia, continue coreg - neuro checks - start IVF for acute renal failure - monitor urine output, creatinine - PO as tolerated - PT/rehab/swallow eval - DVT prophylaxis - can monitor on telemetry
--- NOTE | 2017-03-18 13:51 | PN ---
Physical Exam: SUBJECTIVE: Patient seen and examined Pt is feeling Got out of bed with physical therapy yesterday no focal neurological deficit no dizziness No head ache No blurred vision or double vision OBJECTIVE: Vital Signs Period Temp Pulse Resp BP Sys/Alba Pulse Ox Last 24 Hr 97.6 F-98.6 F 59-73 14-18 120-176/67-103 98 GENERAL: Awake, alert, and fully oriented, in no acute distress. HEAD: Normal with no signs of trauma. EYES: Pupils equal, round and reactive to light, extraocular movements intact, sclera anicteric, conjunctiva clear. No lid lag. EARS, NOSE, THROAT: Ears normal, nares patent, oropharynx clear without exudates. Moist mucous membranes. LUNGS: Breath sounds equal, clear to auscultation bilaterally. No wheezes, and no crackles. No accessory muscle use. HEART:regular rate and rhythm, normal S1 and S2 without murmur, rub or gallop. ABDOMEN: Soft, nontender, not distended, normoactive bowel sounds, no guarding, no rebound, no masses. No hepatomegaly or splenomegaly. MUSCULOSKELETAL: Normal range of motion at all joints. No bony deformities or tenderness. No CVA tenderness. LOWER EXTREMITIES: 2+ pulses, warm, well-perfused. No calf tenderness. No peripheral edema. NEUROLOGICAL: Alert, awake, appropriate. Cranial nerves 2-12 intact. left facial droop seen on facial movement, no uvula, tongue, palate deviation. No deficits to light touch and temperature in face, upper extremities and lower extremities. Left upper extremities 4.5/5 while right upper ext 5/5 strength and lower extremities 5/5 bilaterally Normoreflexic in all ext . Slurred speech resolving. Toes are down-going bilaterally. Gait not observed SKIN: Warm, dry, normal turgor, no rashes or lesions noted, normal capillary refill. Laboratory Results - last 24 hr 03/17/17 03/18/17 03/18/17 22:40 05:15 05:15 WBC 7.9 RBC 4.60 Hgb 14.3 Hct 41.5 MCV 90.2 MCHC 34.5 RDW 13.1 Plt Count 251 MPV 8.5 Sodium 138 Potassium 3.8 Chloride 101 Carbon Dioxide 28 Anion Gap 9 BUN 14 Creatinine 1.5 H POC Glucometer [phone] Random Glucose 87 Calcium 8.7 Phosphorus 3.0 Magnesium 1.9 03/18/17 03/18/17 05:33 12:10 WBC RBC Hgb Hct MCV MCHC RDW Plt Count MPV Sodium Potassium Chloride Carbon Dioxide Anion Gap BUN Creatinine POC Glucometer [phone] Random Glucose Calcium Phosphorus Magnesium Active Medications Generic Name Dose Route Start Last Admin Trade Name Freq PRN Reason Stop Dose Admin Atorvastatin Calcium 40 mg 03/17/17 22:00 03/17/17 22:44 Lipitor - PO 40 mg HS NIRAJ Administration Carvedilol 6.25 mg 03/17/17 12:00 03/18/17 11:01 Coreg - PO 6.25 mg BID NIRAJ Administration Chlorhexidine Gluconate 1 applic 03/15/17 22:00 03/17/17 22:42 Hibiclens For Decolonization - TP 1 applic HS NIRAJ Administration Sodium Chloride 1,000 mls @ 75 mls/hr 03/18/17 12:00 Normal Saline - IV ASDIR [facility] Insulin Aspart 1 vial 03/15/17 18:00 03/18/17 06:10 Novolog Vial Sliding Scale - SQ Not Given Q6HPO [facility] Protocol Mupirocin 1 applic 03/15/17 22:00 03/17/17 22:42 Bactroban Ointment (For Decolonization) - NS 03/20/17 21:59 1 applic BID INRAJ Administration Nifedipine 60 mg 03/18/17 12:00 Procardia Xl - PO DAILY [facility] CBC, BMP 03/18/17 05:15 03/18/17 05:15 ASSESSMENT/PLAN: 71 year old male with pmh of HTN, hyperlipidemia who recently went off his Losartan present to the emergency department with left arm weakness. Pt was found to have intracranial hemorrhage. Intracranial Hemorrhage likely due HTN CT head showed Right internal capsular/intracerebral hemorrhage with minimal midline shift to the left Pt came in with BP 232/112, MAP>[address] head showed no progression of ICH Neurocheck q4h Neurosurgery consulted Dr Rocha Neurology consulted Dr keith Pt has clinically improved, less facial droop, strength at baseline Coreg 6.25 mg po BID Nifedipine 60mg po daily Optimal control on BP New onset AFIB (resolved ) reverted to Sinus rhythm Echo done no abnormalities NO anticoagulation due to hemorrhagic stroke GEETA Cr 1.5 Resume NS at 100ml/h FEN Fluid:NS 100ml/h Electrolytes: no abnormality Nutrition : vegetarian diet Deconditioning: PT/OT DVT prophylaxis: SCD Disposition: transfer to telemetry. Tight BP control on PO meds Visit type - Emergency Visit Emergency Visit: Yes ED Registration Date: 03/15/17 Care time: The patient presented to the Emergency Department on the above date and was hospitalized for further evaluation of their emergent condition. - New Patient This patient is new to me today: Yes Date on this admission: 03/20/17 - Critical Care Critical Care patient: Yes Total Critical Care Time (in minutes): 40 Critical Care Statement: The care of this patient involved high complexity decision making to prevent further life threatening deterioration of the patient 's condition and/or to evalute & treat vital organ system(s) failure or risk of failure. - Discharge Referral Referred to [facility] No
--- NOTE | 2017-03-18 14:42 | PN ---
Progress Note (short form) - Note Progress Note: Neurology History of Present Illness The patient is a 71 year old male, with a significant past medical history of hypertension, who presents to the emergency department via ems for left facial droop, left upper and lower extremity weakness. The patient [place] friends who reported the patient developed some slurred speech and left sided facial droop, as well as, left upper and lower extremity weakness. The patient states he was recently taken off of his losartan. In ER, CT head completed right-sided internal capsular/intercerebral hemorrhage with minimal midline shift to the left. Jake Deluca consulted and no surgical intervention as patient exam intact. Active Medications Atorvastatin Calcium (Lipitor -) 40 mg PO HS [facility] Last Admin: 03/17/17 22:44 Dose: 40 mg Carvedilol (Coreg -) 6.25 mg PO BID [facility] Last Admin: 03/18/17 11:01 Dose: 6.25 mg Chlorhexidine Gluconate (Hibiclens For Decolonization -) 1 applic TP HS [facility] Last Admin: 03/17/17 22:42 Dose: 1 applic Sodium Chloride (Normal Saline -) 1,000 mls @ 75 mls/hr IV ASDIR [facility] Insulin Aspart (Novolog Vial Sliding Scale -) 1 vial SQ Q6HPO [facility] PRN Reason: Protocol Last Admin: 03/18/17 06:10 Dose: Not Given Mupirocin (Bactroban Ointment (For Decolonization) -) 1 applic NS BID [facility] Stop: 03/20/17 21:59 Last Admin: 03/17/17 22:42 Dose: 1 applic Nifedipine (Procardia Xl -) 60 mg PO DAILY [facility] *Physical Exam Vital Signs Temperature 98.6 F 03/18/17 10:00 Pulse Rate 68 03/18/17 10:00 Respiratory Rate 16 03/18/17 10:00 Blood Pressure 130/82 03/18/17 10:00 O2 Sat by Pulse Oximetry (%) 98 03/18/17 09:00 GENERAL: Awake, alert, and oriented, in no acute distress HEAD: No signs of trauma EYES: PERRLA, EOMI, sclera anicteric, conjunctiva clear ENT: Auricles normal inspection, hearing grossly normal, nares patent, oropharynx clear without exudates. Moist mucosa NECK: Normal ROM, supple, no lymphadenopathy, JVD, or masses LUNGS: Breath sounds equal, clear to auscultation bilaterally. No wheezes, and no crackles HEART: Regular rate and rhythm, normal S1 and S2, no murmurs, rubs or gallops ABDOMEN: Soft, nontender, normoactive bowel sounds. No guarding, no rebound. No masses EXTREMITIES: no edema. No clubbing or cyanosis. No cords, erythema, or tenderness SKIN: Warm, Dry, normal turgor, no rashes or lesions noted. NEUROLOGICAL: CN intact, strength equal b/l, sensory normal, gait deferred CBCD WBC 7.2 K/mm3 (4.0-10.0) 03/17/17 05:15 RBC 4.72 M/mm3 (4.00-5.60) 03/17/17 05:15 Hgb 14.3 GM/dL (11.7-16.9) 03/17/17 05:15 Hct 43.1 % (35.4-49) 03/17/17 05:15 MCV 91.3 fl (80-96) 03/17/17 05:15 MCHC 33.2 g/dl (32.0-35.9) 03/17/17 05:15 RDW 13.2 % (11.9-15.9) 03/17/17 05:15 Plt Count 261 K/MM3 (134-434) 03/17/17 05:15 MPV 8.5 fl (7.5-11.1) 03/17/17 05:15 CMP Sodium 140 mmol/L (136-145) 03/17/17 05:15 Potassium 3.7 mmol/L (3.5-5.1) 03/17/17 05:15 Chloride 106 mmol/L (98-107) 03/17/17 05:15 Carbon Dioxide 25 mmol/L (21-32) 03/17/17 05:15 Anion Gap 9 (8-16) 03/17/17 05:15 BUN 14 mg/dL (7-18) D 03/17/17 05:15 Creatinine 1.3 mg/dL (0.7-1.3) 03/17/17 05:15 Creat Clearance w eGFR > 60 (>60) 03/16/17 05:25 Calcium 8.0 mg/dL (8.5-10.1) L 03/17/17 05:15 Total Bilirubin 0.8 mg/dL (0.2-1.0) D 03/16/17 05:25 AST 18 U/L (15-37) 03/16/17 05:25 ALT 19 U/L (12-78) 03/16/17 05:25 Alkaline Phosphatase 63 U/L (45-117) 03/16/17 05:25 Total Protein 7.2 g/dl (6.4-8.2) 03/16/17 05:25 Albumin 3.8 g/dl (3.4-5.0) 03/16/17 05:25 - Medical Decision Making 71 year old male, with a significant past medical history of hypertension, who presents to the emergency department via ems for left facial droop, left upper and lower extremity weakness. The patient [place] friends who reported the patient developed some slurred speech and left sided facial droop, as well as, left upper and lower extremity weakness. The patient states he was recently taken off of his losartan. In ER, CT head completed right-sided internal capsular/intercerebral hemorrhage with minimal midline shift to the left. Jake JAMESON NSLevy consulted and no surigical intervention as patient exam intact. Repeat CT's have been stable. Based on size and location, etiology likely hypertensive. Tight BP control. Fall precautions. In ICU stable and symptomatic. Hold antiplatelets for at least one month. Neurologically stable without events.
[2017-03-18 14:47] LABS: URINE APPEARANCE CLEAR; URINE BILIRUBIN NEGATIVE (NEGATIVE); URINE BLOOD NEGATIVE (NEGATIVE); URINE COLOR YELLOW; URINE GLUCOSE (UA) NEGATIVE (NEGATIVE); URINE KETONE TRACE (NEGATIVE); URINE LEUK ESTERASE NEGATIVE (NEGATIVE); URINE NITRITE NEGATIVE (NEGATIVE); URINE PROTEIN NEGATIVE (NEGATIVE); URINE UROBILINOGEN NEGATIVE E.U./dl (0.2-1.0)
--- NOTE | 2017-03-18 17:44 | PN ---
Teaching Attending Note Name of Resident: Erik Pryor ATTENDING PHYSICIAN STATEMENT I saw and evaluated the patient. I reviewed the resident's note and discussed the case with the resident. I agree with the resident's findings and plan as documented. SUBJECTIVE:currently asymptomatic. states his slurred speech has resolved. tolerating diet. denies CP, blurred vision, SOB, fever, chills, N/V/C/D OBJECTIVE: Last Vital Signs Temp Pulse Resp BP Pulse Ox 97.8 F 71 19 128/71 98 03/18/17 14:00 03/18/17 14:00 03/18/17 14:00 03/18/17 14:00 03/18/17 09:00 General NAD CV S1 S2 RRR no murmur/rub/gallop Lungs CTA B/l no wheezing/rales/rhonchi NeuroCN grossly intact. strength equal B/L UE&LE. gait deferred ASSESSMENT AND PLAN: 71yo M with PMH HTN and dyslipidemia presented to the ER and was admitted for further evaluation of their emergent condition 1. 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 nicardipine ggt stopped yesterday. nifedipine dose increased today. will titrate to optimize control. on coreg. echo with no gross valve dysfunction. goal <160/90. on statin. will hold antiplatlet therapy at this time. repeat head CT shows stablility of bleed. neuro and neurosurgery on board. passed swallow eval and on regular diet. PT assessment 2. GEETA- likely due to HTN emergency. low dose IVF. avoid nephrotoxic agents. will consider full workup if no improvement 3. Afib- currently in sinus rhythm. will need cardio follow up as outpatient 4. DVT ppx- SCD 5. stable for transfer to tele The care of this patient involved high complexity decision making to prevent further life threatening deterioration of the patient's condition and/or to evalute & treat vital organ system(s) failure or risk of failure. 38 minutes critical care time
[2017-03-18] MEDS: CHLORHEXIDINE GLUCONATE 4% CLEANSER FOR DECOLONIZATION TP SCH (22:24)
[2017-03-18] MEDS: ATORVASTATIN CA 40 MG TABLET (FP) PO SCH (22:25)
[2017-03-19] MEDS: INSULIN SLIDING SCALE (NOVOLOG) 1 VIAL SQ SCH ×3 (05:50→11:03)
[2017-03-19 06:17] LABS: MCH 31.4 pg (25.7-33.7); MCHC 34.8 g/dl (32.0-35.9); MEAN CELL VOLUME 90.3 fl (80-96); MEAN PLT VOLUME 8.1 fl (7.5-11.1); PLATELET COUNT 235 K/MM3 (134-434); WHITE BLOOD COUNT 6.5 K/mm3 (4.0-10.0)
[2017-03-19 07:04] LABS: CALCIUM 7.7 mg/dL (8.5-10.1); CREATININE 1.2 mg/dL (0.7-1.3); MAGNESIUM 1.9 mg/dL (1.8-2.4); PHOSPHOROUS 3.3 mg/dL (2.5-4.9)
--- NOTE | 2017-03-19 08:44 | PN ---
Teaching Attending Note Name of Resident: Erik Pryor ATTENDING PHYSICIAN STATEMENT I saw and evaluated the patient. I reviewed the resident's note and discussed the case with the resident. I agree with the resident's findings and plan as documented. SUBJECTIVE:currently asymptomatic. denies Cp, SOB,fever, chills, N/v/C/D, blurred vision or tinnitus OBJECTIVE: Last Vital Signs Temp Pulse Resp BP Pulse Ox 97.6 F 55 L 22 114/79 96 03/19/17 02:00 03/19/17 05:47 03/19/17 05:47 03/19/17 05:47 03/18/17 21:00 General NAD CV S1 S2 RRR no murmur/rub/gallop Lungs CTA B/l no wheezing/rales/rhonchi NeuroCN grossly intact. strength equal B/L UE&LE. gait deferred ASSESSMENT AND PLAN: 71yo M with PMH HTN and dyslipidemia presented to the ER and was admitted for further evaluation of their emergent condition 1. 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 off ggt >48H. BP below goal for 24H. on coreg and nifedipine. on statin. evaluated by speech pathologist. will have PT re-assess pt today as may require RW at this time. will need follow up with neurology. 2. GEETA- likely due to HTN emergency. improved. d/c IVF 3. Afib- self converted and in sinus rhythm. 4. DVT ppx- SCD 5. d/c home today. discussed importance of medication compliance and need to take medications daily. verbalized understanding and in agreement with plan.
[2017-03-19] MEDS: MUPIROCIN 2% TOPICAL OINTMENT FOR DECOLONIZATION NS SCH (09:31)
[2017-03-19] MEDS ORDERED: CARVEDILOL 3.125 MG TABLET (FP) PO SCH (10:00)
--- NOTE | 2017-03-19 10:25 | PN ---
Progress Note (short form) - Note Progress Note: NEUROSURGERY Sitting up in chair at bedside Had breakfast without issue No H/A, N/V or any other complaint PE: Tmax 97.9, 142/90 In sinus (reportedly in Afib prior) A/A/Ox4 HEENT- NC/AT; Neck- supple; Cor- RRR; lungs- CTA B; Abd-benign; Ext- no sign of DVT CN- tongue mild deviation to L; Motor 5/5 with no drift; Sensation- intact LT; DTR-hyporeflexic Head CT: R putamen ICH with posterior mixed density blood, approx 1.2 cm x 4 cm ; mild mass effect and mild R to L shift Hypertensive R putamen ICH with mild mass effect F/u head CT- stable appearance BP control SBP < 160 DBP < 90 Unable to leave message on 's phone Pt aware of care plans PT/OOB
[2017-03-19 11:22] VITALS: TEMP 98
--- NOTE | 2017-03-19 11:36 | PN ---
Teaching Attending Note Name of Resident: Yang Falk ATTENDING PHYSICIAN STATEMENT I saw and evaluated the patient. I reviewed the resident's note and discussed the case with the resident. I agree with the resident's findings and plan as documented. SUBJECTIVE: Pt seen and examined in the ICU. No acute events overnight. Denies headache, nausea or vomiting. OBJECTIVE: Last Vital Signs Temp Pulse Resp BP Pulse Ox 98 F 62 18 128/80 99 03/19/17 11:19 03/19/17 11:19 03/19/17 11:19 03/19/17 11:19 03/19/17 09:00 Intake & Output 03/16/17 03/17/17 03/18/17 03/19/17 23:59 23:59 23:59 23:59 Intake Total 1395 1288 1650 800 Output Total 2000 1300 600 Balance -605 -12 1050 800 Weight 132 lb 2 oz 133 lb 14.4 oz 136 lb 10.986 oz 139 lb 5.314 oz Gen: NAD in chair Heart: RRR Lung: decreased breath sounds at the bases Abd: soft, nontender Ext: no edema CBC, BMP 03/19/17 05:15 03/19/17 05:15 Active Medications Atorvastatin Calcium (Lipitor -) 40 mg PO HS [facility] Last Admin: 03/18/17 22:25 Dose: 40 mg Carvedilol (Coreg -) 3.125 mg PO BID [facility] Last Admin: 03/19/17 09:31 Dose: 3.125 mg Chlorhexidine Gluconate (Hibiclens For Decolonization -) 1 applic TP HS [facility] Last Admin: 03/18/17 22:24 Dose: 1 applic Insulin Aspart (Novolog Vial Sliding Scale -) 1 vial SQ Q6HPO [facility] PRN Reason: Protocol Last Admin: 03/19/17 11:03 Dose: Not Given Mupirocin (Bactroban Ointment (For Decolonization) -) 1 applic NS BID [facility] Stop: 03/20/17 21:59 Last Admin: 03/19/17 09:31 Dose: 1 applic Nifedipine (Procardia Xl -) 60 mg PO DAILY [facility] Last Admin: 03/19/17 09:31 Dose: 60 mg ASSESSMENT AND PLAN: Intracranial Hemorrhage Hypertensive Urgency resolved Paroxysmsal Atrial Fibrillation now in sinus Hyperlipidemia Acute Kidney Injury resolved - BP control, keep BP <160/90 - neuro checks - monitor urine output, creatinine - PO as tolerated - PT/rehab/swallow eval - DVT prophylaxis - d/c planning
--- NOTE | 2017-03-19 11:52 | PN ---
Progress Note (short form) - Note Progress Note: Neurology History of Present Illness The patient is a 71 year old male, with a significant past medical history of hypertension, who presents to the emergency department via ems for left facial droop, left upper and lower extremity weakness. The patient presents [place] friends who reported the patient developed some slurred speech and left sided facial droop, as well as, left upper and lower extremity weakness. The patient states he was recently taken off of his losartan. In ER, CT head completed right-sided internal capsular/intercerebral hemorrhage with minimal midline shift to the left. Jake Deluca consulted and no surgical intervention as patient exam intact. Neurologically stable Active Medications Atorvastatin Calcium (Lipitor -) 40 mg PO HS [facility] Last Admin: 03/18/17 22:25 Dose: 40 mg Carvedilol (Coreg -) 3.125 mg PO BID [facility] Last Admin: 03/19/17 09:31 Dose: 3.125 mg Chlorhexidine Gluconate (Hibiclens For Decolonization -) 1 applic TP [facility] Last Admin: 03/18/17 22:24 Dose: 1 applic Insulin Aspart (Novolog Vial Sliding Scale -) 1 vial SQ Q6HPO [facility] PRN Reason: Protocol Last Admin: 03/19/17 11:03 Dose: Not Given Mupirocin (Bactroban Ointment (For Decolonization) -) 1 applic NS BID [facility] Stop: 03/20/17 21:59 Last Admin: 03/19/17 09:31 Dose: 1 applic Nifedipine (Procardia Xl -) 60 mg PO DAILY [facility] Last Admin: 03/19/17 09:31 Dose: 60 mg *Physical Exam Vital Signs Temperature 98.6 F 03/18/17 10:00 Pulse Rate 68 03/18/17 10:00 Respiratory Rate 16 03/18/17 10:00 Blood Pressure 130/82 03/18/17 10:00 O2 Sat by Pulse Oximetry (%) 98 03/18/17 09:00 GENERAL: Awake, alert, and oriented, in no acute distress HEAD: No signs of trauma EYES: PERRLA, EOMI, sclera anicteric, conjunctiva clear ENT: Auricles normal inspection, hearing grossly normal, nares patent, oropharynx clear without exudates. Moist mucosa NECK: Normal ROM, supple, no lymphadenopathy, JVD, or masses LUNGS: Breath sounds equal, clear to auscultation bilaterally. No wheezes, and no crackles HEART: Regular rate and rhythm, normal S1 and S2, no murmurs, rubs or gallops ABDOMEN: Soft, nontender, normoactive bowel sounds. No guarding, no rebound. No masses EXTREMITIES: no edema. No clubbing or cyanosis. No cords, erythema, or tenderness SKIN: Warm, Dry, normal turgor, no rashes or lesions noted. NEUROLOGICAL: CN intact, strength equal b/l, sensory normal, gait deferred CBCD WBC 7.2 K/mm3 (4.0-10.0) 03/17/17 05:15 RBC 4.72 M/mm3 (4.00-5.60) 03/17/17 05:15 Hgb 14.3 GM/dL (11.7-16.9) 03/17/17 05:15 Hct 43.1 % (35.4-49) 03/17/17 05:15 MCV 91.3 fl (80-96) 03/17/17 05:15 MCHC 33.2 g/dl (32.0-35.9) 03/17/17 05:15 RDW 13.2 % (11.9-15.9) 03/17/17 05:15 Plt Count 261 K/MM3 (134-434) 03/17/17 05:15 MPV 8.5 fl (7.5-11.1) 03/17/17 05:15 CMP Sodium 140 mmol/L (136-145) 03/17/17 05:15 Potassium 3.7 mmol/L (3.5-5.1) 03/17/17 05:15 Chloride 106 mmol/L (98-107) 03/17/17 05:15 Carbon Dioxide 25 mmol/L (21-32) 03/17/17 05:15 Anion Gap 9 (8-16) 03/17/17 05:15 BUN 14 mg/dL (7-18) D 03/17/17 05:15 Creatinine 1.3 mg/dL (0.7-1.3) 03/17/17 05:15 Creat Clearance w eGFR > 60 (>60) 03/16/17 05:25 Calcium 8.0 mg/dL (8.5-10.1) L 03/17/17 05:15 Total Bilirubin 0.8 mg/dL (0.2-1.0) D 03/16/17 05:25 AST 18 U/L (15-37) 03/16/17 05:25 ALT 19 U/L (12-78) 03/16/17 05:25 Alkaline Phosphatase 63 U/L (45-117) 03/16/17 05:25 Total Protein 7.2 g/dl (6.4-8.2) 03/16/17 05:25 Albumin 3.8 g/dl (3.4-5.0) 03/16/17 05:25 - Medical Decision Making 71 year old male, with a significant past medical history of hypertension, who presents to the emergency department via ems for left facial droop, left upper and lower extremity weakness. The patient presents [place] friends who reported the patient developed some slurred speech and left sided facial droop, as well as, left upper and lower extremity weakness. The patient states he was recently taken off of his losartan. In ER, CT head completed right-sided internal capsular/intercerebral hemorrhage with minimal midline shift to the left. Jake JAMESON NSLevy consulted and no surigical intervention as patient exam intact. Repeat CT's have been stable. Based on size and location, etiology likely hypertensive. Tight BP control. Fall precautions. Hold antiplatelets for at least one month. Neurologically stable without events.
--- NOTE | 2017-03-19 11:52 | PN ---
Physical Exam: SUBJECTIVE: Patient seen and examined at bed side in ICu feeling well, NAD. denies CLEMENT, lightheadedness, cp, sob, N/V/D/C. decreased coreg to 3.15mg this AM and BP maintained OBJECTIVE: Vital Signs Period Temp Pulse Resp BP Sys/Alba Pulse Ox Last 24 Hr 97.6 F-98 F 55-71 13-22 105-142/66-93 96-99 GENERAL: Awake, alert, and fully oriented, in no acute distress. sitting in bed eating breakfast. HEAD: Normal with no signs of trauma. EYES: Pupils equal, round and reactive to light, extraocular movements intact, sclera anicteric, conjunctiva clear. EARS, NOSE, THROAT: Ears normal, nares patent, oropharynx clear without exudates. Moist mucous membranes. LUNGS: Breath sounds equal, clear to auscultation bilaterally. No wheezes, and no crackles. No accessory muscle use. HEART: irregular rate and rhythm, normal S1 and S2 without murmur, rub or gallop. ABDOMEN: Soft, nontender, not distended, normoactive bowel sounds, no guarding, no rebound, no masses. No hepatomegaly or splenomegaly. MUSCULOSKELETAL: Normal range of motion at all joints. No bony deformities or tenderness. No CVA tenderness. LOWER EXTREMITIES: 2+ pulses, warm, well-perfused. No calf tenderness. No peripheral edema. NEUROLOGICAL: mild Left facial droop improved. still seen on facial movement, no uvula, tongue, palate deviation. No deficits to light touch and temperature in face, upper extremities and lower extremities. motor deficits in the in left face improved , left upper extremities 5/5 while right upper ext 5/5 strength and lower extremities 5/5 rigth and 5/5 left. Normoreflexic in all ext. Slurred speech resolving improved . Toes are down-going bilaterally. Gait not observed. PSYCHIATRIC: Cooperative. Good eye contact. Appropriate mood and affect. SKIN: Warm, dry, normal turgor, no rashes or lesions noted, normal capillary refill. Laboratory Results - last 24 hr 03/18/17 03/18/17 03/19/17 12:10 14:15 05:15 WBC 6.5 RBC 4.52 Hgb 14.2 Hct 40.8 MCV 90.3 MCHC 34.8 RDW 13.0 Plt Count 235 MPV 8.1 Sodium Potassium Chloride Carbon Dioxide Anion Gap BUN Creatinine POC Glucometer [phone] Random Glucose Calcium Phosphorus Magnesium Urine Color Yellow Urine Appearance Clear Urine pH 6.0 D Ur Specific [place] 1.020 Urine Protein Negative Urine Glucose (UA) Negative Urine Ketones Trace H Urine Blood Negative Urine Nitrite Negative Urine Bilirubin Negative Urine Urobilinogen Negative Ur Leukocyte Esterase Negative 03/19/17 03/19/17 03/19/17 05:15 05:33 10:46 WBC RBC Hgb Hct MCV MCHC RDW Plt Count MPV Sodium 142 Potassium 3.5 Chloride 109 H Carbon Dioxide 25 Anion Gap 8 BUN 15 Creatinine 1.2 POC Glucometer 110.38917 129.24146 Random Glucose 93 Calcium 7.7 L Phosphorus 3.3 Magnesium 1.9 Urine Color Urine Appearance Urine pH Ur Specific [place] Urine Protein Urine Glucose (UA) Urine Ketones Urine Blood Urine Nitrite Urine Bilirubin Urine Urobilinogen Ur Leukocyte Esterase Active Medications Generic Name Dose Route Start Last Admin Trade Name Freq PRN Reason Stop Dose Admin Atorvastatin Calcium 40 mg 03/17/17 22:00 03/18/17 22:25 Lipitor - PO 40 mg HS NIRAJ Administration Carvedilol 3.125 mg 03/19/17 10:00 03/19/17 09:31 Coreg - PO 3.125 mg BID NIRAJ Administration Chlorhexidine Gluconate 1 applic 03/15/17 22:00 03/18/17 22:24 Hibiclens For Decolonization - TP 1 applic HS NIRAJ Administration Insulin Aspart 1 vial 03/15/17 18:00 03/19/17 11:03 Novolog Vial Sliding Scale - SQ Not Given Q6HPO [facility] Protocol Mupirocin 1 applic 03/15/17 22:00 03/19/17 09:31 Bactroban Ointment (For Decolonization) - NS 03/20/17 21:59 1 applic BID NIRAJ Administration Nifedipine 60 mg 03/18/17 12:00 03/19/17 09:31 Procardia Xl - PO 60 mg DAILY NIRAJ Administration ASSESSMENT/PLAN: 71 year old male, with a significant past medical history of hypertension, who presents to the emergency department via ems for left facial droop, left upper and lower extremity weakness. Found to have Hypertensive Urgency, Intra cranial hemorrhage, on Head CT: R putamen ICH with posterior mixed density blood , approx 1.2 cm x 4 cm; mild mass effect and mild R to L shift, Hypertensive R putamen ICH with mild mass effect Intra cranial hemorrhage -F/u head CT- no change R putamen ICH with mild mass effect-Pt has clinically improved, less faciual droop, less left sided weakness , strength almost at baseline BP control SBP < 160 DBP < 90 PO Coreg and Procardia Xl for BP control decreased coreg to 3.15mg this AM and BP maintained neuro checks keep HOB elevated 30-45 degrees Aspiration precaution Neurocheck q2h HGA1C 5.[address] Rocha appreciated no surgical intervention at this time. Hyperlipidemia Start Lipitor 40mg GEETA: started IVF New onset Paroxysmsal AFIB- converted to NS NO anticoagulation due to hemorrhagic stroke Carvedilol FEN oral hydration, started IVNC 75cc/hr Electrolytes: no abdnormality Nutrition : Dysphagia purre diet pending speech eval by Deconditioning: PT/OT DVT prophylaxis: SCD Dispo: ok with discharge home . Visit type - Emergency Visit Emergency Visit: Yes ED Registration Date: 03/15/17 Care time: The patient presented to the Emergency Department on the above date and was hospitalized for further evaluation of their emergent condition. - New Patient This patient is new to me today: No - Critical Care Critical Care patient: Yes Total Critical Care Time (in minutes): 40 Critical Care Statement: The care of this patient involved high complexity decision making to prevent further life threatening deterioration of the patient 's condition and/or to evalute & treat vital organ system(s) failure or risk of failure.
--- NOTE | 2017-03-19 14:10 | PN ---
Progress Note, [employer] - Note Progress Note: Selected Entries 03/17/17 03/17/17 03/17/17 03:00 07:00 10:00 Diet Tolerated Fair Supper 75% Temperature 98 F 98.2 F 03/17/17 03/17/17 03/18/17 15:00 23:00 02:00 Diet Tolerated Supper Temperature 98 F 97.6 F 98.2 F Selected Entries 03/18/17 03/19/17 03/19/17 22:46 02:00 10:00 Breakfast 75% Diet Tolerated Fair Well Supper 50% Temperature 97.6 F 97.9 F 03/19/17 11:19 Breakfast Diet Tolerated Supper Temperature 98 F Tolerating diet upgrade well with good appetite. Left facial improved. Tongue with left deviation. No further speech pathology f/u indicated at this time.
[2017-03-19 14:32] VITALS: BP 102/72; PULSE 56
--- NOTE | 2017-03-20 05:45 | DS ---
Physical Exam: SUBJECTIVE: Patient seen and examined OBJECTIVE: Vital Signs Period Temp Pulse Resp BP Sys/Alba Pulse Ox Last 24 Hr 97.9 F-98 F 55-62 16-22 102-142/72-90 99 PHYSICAL EXAM LABS Laboratory Results - last 24 hr 03/19/17 03/19/17 03/19/17 05:15 05:15 05:33 WBC 6.5 RBC 4.52 Hgb 14.2 Hct 40.8 MCV 90.3 MCHC 34.8 RDW 13.0 Plt Count 235 MPV 8.1 Sodium 142 Potassium 3.5 Chloride 109 H Carbon Dioxide 25 Anion Gap 8 BUN 15 Creatinine 1.2 POC Glucometer 110.54592 Random Glucose 93 Calcium 7.7 L Phosphorus 3.3 Magnesium 1.9 03/19/17 10:46 WBC RBC Hgb Hct MCV MCHC RDW Plt Count MPV Sodium Potassium Chloride Carbon Dioxide Anion Gap BUN Creatinine POC Glucometer 129.21976 Random Glucose Calcium Phosphorus Magnesium CT head 03/15/17: Right-sided internal capsular/intracerebral hemorrhage with minimal midline shift to the left HOSPITAL COURSE: Date of Admission:03/15/17 71 year old male with pmh of HTN, hyperlipidemia who recently went off his Losartan present to the emergency department with left arm weakness. Pt was found to have intracranial hemorrhage likely due HTN. CT head showed Right internal capsular/intracerebral hemorrhage with minimal midline shift to the left. Pt came in with BP 232/112, MAP>152 and was placed on a cardene drip for bp control. repeat CT head showed no progression of ICH. Neurosurgery consulted , Dr Rocha, he said no surgical intervention necessary. Neurology consulted Dr Martin, he recommended bp control, neuro checks. Pt was swirched to PO antihypertensives: Coreg 6.25 mg po BID and Nifedipine 60mg po daily. The combination with Coreg caused patient to be midly hypotensive and bradycardic therefore Pt will be discharged on Nifedipine Po only. Pt will also be discharged on atorvastatin 40mg qhs. Pt has clinically improved, strength at baseline. Patient is to follow up with Dr Martin within 1 month. Eat Low salt diet, have optimal BP control. Patient developed New onset AFIB during the admission which spontaneously resolved and pt reverted to Sinus rhythm. Echo done and showed no abnormalities. NO anticoagulation was started due to hemorrhagic stroke. Patient is to follow up with terrazzo helper after discharge Dr Lang. Date of Discharge: 03/20/17 Minutes to complete discharge: 35 Discharge Summary Reason For Visit: INTRACRANIAL HEMORRHAGE Condition: Improved - Instructions Diet, Activity, Other Instructions: You were treated for a hemorrhagic stroke (bleeding in the brain) this likely occurred due to your uncontrolled blood pressure it is important for you to take medications daily as prescribed avoid aspirin and NSAID like products (motrin, aleive, ibuprofen, naproxen, etc ) for at least 1 month or until instructed that you can by your doctor Eat a low salt diet Follow up with your primary care doctor in 1 week, if you do not have one information on one has been provided Follow up with neurology in 1 month You have an abnormal heart rhythm known as atrial fibrillation. you will need to follow up with [facility] helper possible further workup. information on one has been provided. Return to the ER if your symptoms worsen. Referrals: Florencia Kent MD [Staff Physician] - 1 Week (primary care) King Martin MD [Staff Physician] - 1 Month (neurology) Zachery Lang MD [Staff Physician] - Disposition: HOME - Home Medications Comprehensive Discharge Medication List: Ambulatory Orders Atorvastatin Ca [Lipitor] 40 mg PO HS #30 tablet 03/19/17 Nifedipine [Procardia Xl] 60 mg PO DAILY #30 tab.er.24 03/19/17 This patient is new to me today: Yes Emergency Visit: Yes ED Registration Date: 03/15/17 Care time: The patient presented to the Emergency Department on the above date and was hospitalized for further evaluation of their emergent condition. Critical Care patient: Yes Total Critical Care Time (in minutes): 35 Critical Care Statement: The care of this patient involved high complexity decision making to prevent further life threatening deterioration of the patient 's condition and/or to evalute & treat vital organ system(s) failure or risk of failure. - Discharge Referral Referred to [facility] No
== END 2017-03-19 16:30 | disposition home or self-care (01) | DRG 65 ==
LOC: JER 13:29 → JERBED 14:30 → JICU 19:47
PROVIDERS: ADMIT Internal Medicine; ATTEND Internal Medicine
DX: I61.9 Nontraumatic intracerebral hemorrhage, unspecified (principal); G81.94 Hemiplegia, unspecified affecting left nondominant side; I16.1 Hypertensive emergency; N17.9 Acute kidney failure, unspecified; R47.81 Slurred speech; Z87.891 Personal history of nicotine dependence; E78.5 Hyperlipidemia, unspecified; E87.6 Hypokalemia; I48.0 Paroxysmal atrial fibrillation; R13.10 Dysphagia, unspecified
CPT/HCPCS: 36415; 70450-TC; 71010-TC; 80048; 80053; 81003; 82465; 82550; 83036; 83718; 83721; 83735; 84100; 84478; 84484; 85025; 85027; 85610; 85730; 86850; 86900; 86901; 87086; 87186; 93005; 93010; 93306-TC; 97116-GP; 97161-GP; 99285-25

== ENCOUNTER 2024-06-28 20:41 | Inpatient (IN) | payer OTHER ==
[2024-06-28 21:41] LABS: HEMATOCRIT 35.1 % (35.4-49); HEMOGLOBIN 11.6 GM/dL (11.7-16.9); MCH 29.9 pg (25.7-33.7); MCHC 33.2 g/dl (32.0-35.9); MEAN CELL VOLUME 90.2 fl (80-96); MEAN PLT VOLUME 7.4 fl (7.5-11.1); PLATELET COUNT 414 10^3/uL (134-434); RBC 3.89 M/mm3 (4.00-5.60); RDW 14.3 % (11.9-15.9)
[2024-06-28 21:46] LABS: INR 1.34 (0.83-1.09)
[2024-06-28 21:50] LABS: WHITE BLOOD COUNT 31.4 K/mm3 (4.0-10.0)
[2024-06-28 21:57] LABS: POTASSIUM 4.2 mmol/L (3.5-5.1)
[2024-06-28 21:59] LABS: CALCIUM 8.3 mg/dL (8.5-10.1)
[2024-06-28 22:00] LABS: ALBUMIN 2.3 g/dl (3.4-5.0); BLOOD UREA NITROGEN 24.6 mg/dL (7-18)
[2024-06-28 22:03] LABS: CREATININE 1.3 mg/dL (0.55-1.3)
[2024-06-28 22:04] LABS: BILIRUBIN,TOTAL 0.8 mg/dL (0.2-1)
[2024-06-28 22:05] LABS: TOT PROT 6.9 g/dl (6.4-8.2)
[2024-06-28] MEDS: SODIUM CHLORIDE 0.9% 500 ML INFUS.BAG IV ONE (22:10)
[2024-06-28 22:20] LABS: ANISOCYTOSIS 1+; MACROCYTOSIS 0
[2024-06-28] MEDS ORDERED: PANTOPRAZOLE SODIUM 40 MG/100 ML BAG IVPB ONE (22:28)
[2024-06-28] MEDS ORDERED: CEFTRIAXONE 1 GM/50 ML BAG ONE (22:29)
[2024-06-28] MEDS ORDERED: AZITHROMYCIN IVPB 500 MG/250 ML BAG IVPB ONE (22:29)
[2024-06-28] MEDS: CEFTRIAXONE 1,000 MG in DEXTROSE 5%-WATER - 50 ML IVPB ONE (22:34)
[2024-06-28] MEDS: PANTOPRAZOLE SODIUM 40 MG in SODIUM CHLORIDE 100 ML IVPB ONE (22:49)
[2024-06-28] MEDS: AZITHROMYCIN IVPB 500 MG in DEXTROSE 5%-WATER - 250 ML IVPB ONE (23:27)
[2024-06-29 06:15] VITALS: BMI 17.6
[2024-06-29 08:37] LABS: HEMATOCRIT 37.6 % (35.4-49); HEMOGLOBIN 12.3 GM/dL (11.7-16.9); MCH 29.9 pg (25.7-33.7); MCHC 32.8 g/dl (32.0-35.9); MEAN CELL VOLUME 91.1 fl (80-96); MEAN PLT VOLUME 7.5 fl (7.5-11.1); PLATELET COUNT 434 10^3/uL (134-434); RBC 4.13 M/mm3 (4.00-5.60)
[2024-06-29 08:49] LABS: WHITE BLOOD COUNT 31.8 K/mm3 (4.0-10.0)
[2024-06-29 09:23] LABS: MAGNESIUM 2.2 mg/dL (1.8-2.4)
[2024-06-29 09:24] LABS: BLOOD UREA NITROGEN 21.8 mg/dL (7-18); CALCIUM 8.3 mg/dL (8.5-10.1)
[2024-06-29 09:27] LABS: BILIRUBIN,TOTAL 0.8 mg/dL (0.2-1); CREATININE 1.1 mg/dL (0.55-1.3)
[2024-06-29 09:28] LABS: TOT PROT 6.4 g/dl (6.4-8.2)
[2024-06-29] MEDS ORDERED: AZITHROMYCIN IVPB 500 MG/250 ML BAG IVPB SCH (10:00)
[2024-06-29] MEDS ORDERED: NIFEdipine E.R 60 MG TABLET PO SCH (10:00)
[2024-06-29 10:26] LABS: ANISOCYTOSIS 0; HELMET CELLS 0; HOWELL-JOLLY BODIES 0; MACROCYTOSIS 0; OVALOCYTE 0; ROULEAU 0; SICKELED CELLS 0; TARGET CELLS 0; TEAR DROP CELLS 0; TOXIC GRANULATION 0
[2024-06-29] MEDS: CARVEDILOL 3.125 MG TABLET (FP) PO SCH (11:23)
[2024-06-29] MEDS: PANTOPRAZOLE SODIUM 40 MG VIAL IVPUSH SCH (11:23)
[2024-06-29] MEDS: AZITHROMYCIN IVPB 250 MG in DEXTROSE 5%-WATER - 250 ML IVPB SCH (11:24)
[2024-06-29] MEDS: CEFTRIAXONE 1 GM in DEXTROSE 5%-WATER - 50 ML IVPB ONE (12:34)
[2024-06-29] MEDS ORDERED: SODIUM CHLORIDE 1,000 ML IV SCH (14:00)
[2024-06-29] MEDS ORDERED: METOPROLOL TARTRATE 5 MG/5 ML VIAL IVPUSH PRN (15:34)
[2024-06-29 19:49] LABS: BF WBC & OTHER NUCLEATED CELLS 2060 /mm3
[2024-06-29 20:28] LABS: BODY FLUID MONOCYTE 3 %
[2024-06-29] MEDS: METOPROLOL TARTRATE 50 MG TABLET (FP) PO SCH (22:19)
[2024-06-30] MEDS: CEFTRIAXONE 1 GM in DEXTROSE 5%-WATER - 50 ML IVPB SCH (10:11)
[2024-06-30] MEDS: PANTOPRAZOLE 40 MG TABLET PO SCH (10:11)
[2024-06-30] MEDS: ENOXAPARIN NA (PORCINE) 40 MG/0.4 ML DISP.SYRIN SQ SCH (11:36)
[2024-06-30 13:42] LABS: HEMATOCRIT 37.7 % (35.4-49); HEMOGLOBIN 12.5 GM/dL (11.7-16.9); MCHC 33.2 g/dl (32.0-35.9); MEAN CELL VOLUME 90.2 fl (80-96); MEAN PLT VOLUME 8.2 fl (7.5-11.1); PLATELET COUNT 496 10^3/uL (134-434); RBC 4.17 M/mm3 (4.00-5.60); RDW 14.6 % (11.9-15.9)
[2024-06-30 14:10] LABS: BODY FLUID ALBUMIN 2.1 g/dL (Not Estab.)
[2024-06-30 14:35] LABS: ANISOCYTOSIS 0; HELMET CELLS 0; HOWELL-JOLLY BODIES 0; MACROCYTOSIS 0; OVALOCYTE 0; ROULEAU 0; SICKELED CELLS 0; TARGET CELLS 0; TEAR DROP CELLS 0; TOXIC GRANULATION 0
[2024-06-30 15:41] LABS: HEMATOCRIT 37.1 % (35.4-49); HEMOGLOBIN 12.1 GM/dL (11.7-16.9); MCH 29.4 pg (25.7-33.7); MCHC 32.5 g/dl (32.0-35.9); MEAN CELL VOLUME 90.5 fl (80-96); MEAN PLT VOLUME 7.5 fl (7.5-11.1); PLATELET COUNT 401 10^3/uL (134-434); RBC 4.11 M/mm3 (4.00-5.60); RDW 14.7 % (11.9-15.9); WHITE BLOOD COUNT 27.1 K/mm3 (4.0-10.0)
[2024-06-30] MEDS: ENOXAPARIN NA (PORCINE) 60 MG/0.6 ML DISP.SYRIN SQ SCH (22:02)
[2024-07-01 07:14] LABS: BASO % 0.6 % (0-2.0); EOS % 0.1 % (0-4.5); HEMATOCRIT 37.2 % (35.4-49); HEMOGLOBIN 12.1 GM/dL (11.7-16.9); LYMPH % 4.8 % (8-40); MCH 29.9 pg (25.7-33.7); MCHC 32.7 g/dl (32.0-35.9); MEAN CELL VOLUME 91.6 fl (80-96); MEAN PLT VOLUME 8.1 fl (7.5-11.1); MONO % 5.4 % (3.8-10.2); NEUT % 89.1 % (42.8-82.8); PLATELET COUNT 424 10^3/uL (134-434); RBC 4.06 M/mm3 (4.00-5.60); RDW 14.1 % (11.9-15.9); WHITE BLOOD COUNT 20.9 K/mm3 (4.0-10.0)
[2024-07-01 07:31] LABS: POTASSIUM 3.9 mmol/L (3.5-5.1)
[2024-07-01 07:35] LABS: CALCIUM 7.9 mg/dL (8.5-10.1)
[2024-07-01 07:36] LABS: BLOOD UREA NITROGEN 24.7 mg/dL (7-18)
[2024-07-01 07:39] LABS: PHOSPHOROUS 3.6 mg/dL (2.5-4.9)
[2024-07-01 09:03] LABS: ANISOCYTOSIS 0; MACROCYTOSIS 0
[2024-07-01] MEDS ORDERED: morphine CARPU-JECT 2 MG/1 ML DISP.SYRIN IVPUSH PRN (11:22)
[2024-07-01] MEDS ORDERED: MORPHINE SULFATE 2 MG/ML SYRINGE IVPUSH PRN (11:25)
[2024-07-02 08:20] LABS: HEMATOCRIT 35.5 % (35.4-49); HEMOGLOBIN 11.7 GM/dL (11.7-16.9); MCH 29.9 pg (25.7-33.7); MEAN CELL VOLUME 90.4 fl (80-96); MEAN PLT VOLUME 7.8 fl (7.5-11.1); PLATELET COUNT 481 10^3/uL (134-434); RBC 3.93 M/mm3 (4.00-5.60); RDW 14.3 % (11.9-15.9); WHITE BLOOD COUNT 17.8 K/mm3 (4.0-10.0)
[2024-07-02 08:32] LABS: POTASSIUM 4.4 mmol/L (3.5-5.1)
[2024-07-02 08:35] LABS: BLOOD UREA NITROGEN 22.2 mg/dL (7-18)
[2024-07-02] MEDS: CEFTRIAXONE 2 GM in DEXTROSE 5%-WATER 100 ML IVPB SCH (09:34)
[2024-07-02] MEDS ORDERED: oxyCODONE HCL 5 MG TABLET PO PRN (11:30)
[2024-07-02] MEDS: ACETAMINOPHEN 1000 MG/100 ML BAG IVPB PRN (16:40)
[2024-07-03 06:51] LABS: BASO % 0.4 % (0-2.0); EOS % 0.7 % (0-4.5); HEMATOCRIT 33.5 % (35.4-49); HEMOGLOBIN 11.1 GM/dL (11.7-16.9); MCH 29.9 pg (25.7-33.7); MCHC 33.1 g/dl (32.0-35.9); MEAN CELL VOLUME 90.3 fl (80-96); MEAN PLT VOLUME 7.5 fl (7.5-11.1); MONO % 7.6 % (3.8-10.2); NEUT % 84.3 % (42.8-82.8); PLATELET COUNT 465 10^3/uL (134-434); RBC 3.71 M/mm3 (4.00-5.60); RDW 14.4 % (11.9-15.9); WHITE BLOOD COUNT 12.8 K/mm3 (4.0-10.0)
[2024-07-03 07:14] LABS: POTASSIUM 4.2 mmol/L (3.5-5.1)
[2024-07-03 07:19] LABS: BLOOD UREA NITROGEN 28.2 mg/dL (7-18); MAGNESIUM 2.1 mg/dL (1.8-2.4)
[2024-07-03 07:23] LABS: CREATININE 1.3 mg/dL (0.55-1.3); PHOSPHOROUS 3.6 mg/dL (2.5-4.9)
[2024-07-03 07:24] LABS: BILIRUBIN,TOTAL 0.4 mg/dL (0.2-1)
[2024-07-03 07:26] LABS: ALBUMIN 1.5 g/dl (3.4-5.0)
[2024-07-03] MEDS: ACETAMINOPHEN 325 MG TABLET (FP) PO PRN (18:35)
[2024-07-05 07:26] LABS: BASO % 0.5 % (0-2.0); EOS % 1.1 % (0-4.5); HEMATOCRIT 36.2 % (35.4-49); HEMOGLOBIN 11.9 GM/dL (11.7-16.9); LYMPH % 13.7 % (8-40); MCHC 32.9 g/dl (32.0-35.9); MEAN CELL VOLUME 91.1 fl (80-96); MEAN PLT VOLUME 7.7 fl (7.5-11.1); MONO % 5.6 % (3.8-10.2); NEUT % 79.1 % (42.8-82.8); PLATELET COUNT 490 10^3/uL (134-434); RBC 3.97 M/mm3 (4.00-5.60); RDW 14.2 % (11.9-15.9); WHITE BLOOD COUNT 11.1 K/mm3 (4.0-10.0)
[2024-07-05 07:27] LABS: POTASSIUM 4.3 mmol/L (3.5-5.1)
[2024-07-05 07:35] LABS: ALBUMIN 1.6 g/dl (3.4-5.0)
[2024-07-05 07:36] LABS: BLOOD UREA NITROGEN 19.6 mg/dL (7-18)
[2024-07-05 07:37] LABS: BILIRUBIN,TOTAL 0.4 mg/dL (0.2-1); CALCIUM 8.1 mg/dL (8.5-10.1); MAGNESIUM 1.9 mg/dL (1.8-2.4); TOT PROT 5.3 g/dl (6.4-8.2)
[2024-07-06 07:08] LABS: BASO % 0.2 % (0-2.0); HEMATOCRIT 34.4 % (35.4-49); HEMOGLOBIN 11.5 GM/dL (11.7-16.9); MCH 30.1 pg (25.7-33.7); MCHC 33.5 g/dl (32.0-35.9); MONO % 7.3 % (3.8-10.2); NEUT % 79.5 % (42.8-82.8); PLATELET COUNT 495 10^3/uL (134-434); RBC 3.83 M/mm3 (4.00-5.60); RDW 14.3 % (11.9-15.9); WHITE BLOOD COUNT 9.3 K/mm3 (4.0-10.0)
[2024-07-06 07:21] LABS: POTASSIUM 4.4 mmol/L (3.5-5.1)
[2024-07-06 07:28] LABS: ALBUMIN 1.6 g/dl (3.4-5.0); BLOOD UREA NITROGEN 16.2 mg/dL (7-18); CALCIUM 8.6 mg/dL (8.5-10.1)
[2024-07-06 07:31] LABS: CREATININE 1.1 mg/dL (0.55-1.3); PHOSPHOROUS 2.8 mg/dL (2.5-4.9)
[2024-07-06 07:33] LABS: BILIRUBIN,TOTAL 0.3 mg/dL (0.2-1); TOT PROT 5.4 g/dl (6.4-8.2)
[2024-07-06 15:43] VITALS: TEMP 97.5
[2024-07-07 07:20] LABS: BASO % 0.6 % (0-2.0); EOS % 0.5 % (0-4.5); HEMATOCRIT 34.5 % (35.4-49); HEMOGLOBIN 11.6 GM/dL (11.7-16.9); LYMPH % 7.5 % (8-40); MCH 30.6 pg (25.7-33.7); MCHC 33.6 g/dl (32.0-35.9); MEAN PLT VOLUME 7.1 fl (7.5-11.1); MONO % 5.6 % (3.8-10.2); NEUT % 85.8 % (42.8-82.8); PLATELET COUNT 454 10^3/uL (134-434); RBC 3.79 M/mm3 (4.00-5.60); RDW 14.5 % (11.9-15.9); WHITE BLOOD COUNT 10.7 K/mm3 (4.0-10.0)
[2024-07-07 07:34] LABS: POTASSIUM 4.6 mmol/L (3.5-5.1)
[2024-07-07 07:36] LABS: ALBUMIN 1.8 g/dl (3.4-5.0); BLOOD UREA NITROGEN 16.9 mg/dL (7-18); CALCIUM 8.6 mg/dL (8.5-10.1); MAGNESIUM 2.1 mg/dL (1.8-2.4)
[2024-07-07 07:39] LABS: CREATININE 1.2 mg/dL (0.55-1.3); PHOSPHOROUS 3.1 mg/dL (2.5-4.9)
[2024-07-07 07:41] LABS: BILIRUBIN,TOTAL 0.3 mg/dL (0.2-1); TOT PROT 5.7 g/dl (6.4-8.2)
[2024-07-07 15:17] VITALS: BP 111/77; PULSE 105; RESP 20
== END 2024-07-07 14:56 | disposition home or self-care (01) | DRG 177 ==
LOC: JER 20:41 → JERBED 06-29 02:03 → J4W 06-29 05:50
PROVIDERS: ADMIT Internal Medicine; ATTEND Internal Medicine
PROC: 0B9N30Z Drainage of Right Pleura with Drainage Device, Percutaneous Approach (ICD-10-PCS; principal; 2024-06-29)
PROC: 3E0L3GC Introduction of Other Therapeutic Substance into Pleural Cavity, Percutaneous Approach (ICD-10-PCS; 2024-06-29)
PROC: 0WP9X0Z Removal of Drainage Device from Right Pleural Cavity, External Approach (ICD-10-PCS; 2024-07-06)
DX: J86.9 Pyothorax without fistula (principal); J18.9 Pneumonia, unspecified organism; K92.1 Melena; R64 Cachexia; Z68.1 Body mass index [BMI] 19.9 or less, adult; E46 Unspecified protein-calorie malnutrition; J90 Pleural effusion, not elsewhere classified; I24.89 Other forms of acute ischemic heart disease; I10 Essential (primary) hypertension; E78.5 Hyperlipidemia, unspecified; J44.9 Chronic obstructive pulmonary disease, unspecified; R19.7 Diarrhea, unspecified; I48.0 Paroxysmal atrial fibrillation; R91.1 Solitary pulmonary nodule; G56.21 Lesion of ulnar nerve, right upper limb; R59.0 Localized enlarged lymph nodes; Z86.73 Personal history of transient ischemic attack (TIA), and cerebral infarction without residual deficits
CPT/HCPCS: 32552; 32557; 36415; 71045-TC-FY; 71046-TC-FY; 71250-TC; 71260-TC; 71552-TC; 80048; 80053; 80061; 82042; 82140; 82728; 82945; 83550; 83615; 83735; 83986; 84100; 84157; 84436; 84443; 84466; 84484; 85025; 85027; 85045; 85610; 85730; 86850; 86900; 86901; 87070; 87075; 87102; 87116; 87205; 87206; 87210; 87899; 88108; 88305-TC; 93005; 93010; 93306-TC; 94010; 97116-GP; 97161-GP; 99285-25; J0131; J2997; Q9967

== ENCOUNTER 2024-08-27 | Inpatient (IN) | payer OTHER ==
[2024-08-27] MEDS ORDERED: SODIUM CHLORIDE 1,000 ML IV SCH (00:30)
[2024-08-27 00:45] LABS: BASO % 0.9 % (0-2.0); EOS % 3.3 % (0-4.5); HEMATOCRIT 38.2 % (35.4-49); HEMOGLOBIN 12.4 GM/dL (11.7-16.9); LYMPH % 23.9 % (8-40); MCH 30.9 pg (25.7-33.7); MCHC 32.4 g/dl (32.0-35.9); MEAN CELL VOLUME 95.3 fl (80-96); MEAN PLT VOLUME 7.4 fl (7.5-11.1); MONO % 11.2 % (3.8-10.2); NEUT % 60.7 % (42.8-82.8); PLATELET COUNT 322 10^3/uL (134-434); RBC 4.01 M/mm3 (4.00-5.60); RDW 16.6 % (11.9-15.9); WHITE BLOOD COUNT 5.4 K/mm3 (4.0-10.0)
[2024-08-27 00:53] LABS: INR 0.94 (0.83-1.09); PROTHROMBIN TIME (PATIENT) 10.8 SEC (9.7-13.0)
[2024-08-27 00:56] LABS: ACTIVATED PTT 31.3 SECONDS (25.2-36.5)
[2024-08-27 01:04] LABS: POTASSIUM 4.4 mmol/L (3.5-5.1)
[2024-08-27 01:07] LABS: ALBUMIN 3.4 g/dl (3.4-5.0); BLOOD UREA NITROGEN 27.3 mg/dL (7-18)
[2024-08-27 01:10] LABS: CREATININE 1.2 mg/dL (0.55-1.3)
[2024-08-27 01:11] LABS: BILIRUBIN,TOTAL 0.3 mg/dL (0.2-1); TOT PROT 7.7 g/dl (6.4-8.2)
[2024-08-27 02:42] LABS: PH,URINE 6.5 (5.0-8.0); URINE APPEARANCE CLEAR; URINE BILIRUBIN NEGATIVE (NEGATIVE); URINE COLOR YELLOW; URINE GLUCOSE (UA) NEGATIVE (NEGATIVE); URINE KETONE NEGATIVE (NEGATIVE); URINE LEUK ESTERASE NEGATIVE (NEGATIVE); URINE NITRITE NEGATIVE (NEGATIVE); URINE PROTEIN NEGATIVE (NEGATIVE); URINE UROBILINOGEN 0.2 mg/dL (0.2-1.0)
[2024-08-27] MEDS ORDERED: CARVEDILOL 3.125 MG TABLET (FP) ONE (06:54)
[2024-08-27] MEDS: CARVEDILOL 3.125 MG TABLET (FP) PO ONE (06:58)
[2024-08-27 09:03] LABS: N-TERMINAL BNP 3484.7 pg/ml (5-450)
[2024-08-27] MEDS ORDERED: ASPIRIN 81 MG CHEWABLE TABLETS PO SCH (10:00)
[2024-08-27] MEDS ORDERED: NIFEdipine E.R. 30 MG TABLET PO ONE (10:29)
[2024-08-27] MEDS: NIFEdipine E.R. 30 MG TABLET PO SCH (10:39)
[2024-08-27] MEDS ORDERED: ENOXAPARIN NA (PORCINE) 40 MG/0.4 ML DISP.SYRIN SQ ONE (15:22)
[2024-08-27] MEDS: ENOXAPARIN NA (PORCINE) 40 MG/0.4 ML DISP.SYRIN SQ SCH (16:20)
[2024-08-27] MEDS: CARVEDILOL 3.125 MG TABLET (FP) PO SCH (19:23)
[2024-08-27] MEDS: ATORVASTATIN CA 40 MG TABLET (FP) PO SCH (21:42)
[2024-08-28 00:22] VITALS: BMI 16.7
[2024-08-28 08:32] LABS: HEMATOCRIT 36.8 % (35.4-49); HEMOGLOBIN 12.1 GM/dL (11.7-16.9); MCH 31.3 pg (25.7-33.7); MEAN CELL VOLUME 94.9 fl (80-96); MEAN PLT VOLUME 7.5 fl (7.5-11.1); PLATELET COUNT 308 10^3/uL (134-434); RBC 3.88 M/mm3 (4.00-5.60); RDW 16.6 % (11.9-15.9)
[2024-08-28 08:52] LABS: POTASSIUM 3.7 mmol/L (3.5-5.1)
[2024-08-28 09:00] LABS: ALBUMIN 3.1 g/dl (3.4-5.0); BLOOD UREA NITROGEN 18.3 mg/dL (7-18)
[2024-08-28 09:02] LABS: CALCIUM 8.7 mg/dL (8.5-10.1)
[2024-08-28 09:03] LABS: MAGNESIUM 2.3 mg/dL (1.8-2.4)
[2024-08-28 09:04] LABS: BILIRUBIN,TOTAL 0.7 mg/dL (0.2-1); PHOSPHOROUS 3.7 mg/dL (2.5-4.9); TOT PROT 6.9 g/dl (6.4-8.2)
[2024-08-28 09:07] LABS: HDL CHOLESTEROL 79 mg/dL (40-60)
[2024-08-28 09:08] LABS: CHOLESTEROL 227 mg/dL (50-200)
[2024-08-28 09:13] LABS: LDL CHOLESTEROL (ONLY SJRH) 137 mg/dL (5-100)
[2024-08-28 15:17] VITALS: RESP 19
[2024-08-28 18:58] VITALS: BP 120/65; PULSE 86; TEMP 98.1
[2024-08-28] MEDS ORDERED: APIXABAN 2.5 MG TABLET PO SCH (22:00)
[2024-08-29] MEDS ORDERED: ENOXAPARIN NA (PORCINE) 40 MG/0.4 ML DISP.SYRIN SQ SCH (10:00)
[2024-08-29] MEDS ORDERED: APIXABAN 2.5 MG TABLET PO SCH (10:00)
== END 2024-08-28 20:50 | disposition home or self-care (01) | DRG 65 ==
LOC: JER → JERBED 01:54 → OBSVTOIN 05:21 → J4W 20:47
PROVIDERS: ADMIT Internal Medicine; ATTEND Internal Medicine
DX: I63.89 Other cerebral infarction (principal); E46 Unspecified protein-calorie malnutrition; I48.19 Other persistent atrial fibrillation; I69.354 Hemiplegia and hemiparesis following cerebral infarction affecting left non-dominant side; I50.32 Chronic diastolic (congestive) heart failure; Z68.1 Body mass index [BMI] 19.9 or less, adult; I11.0 Hypertensive heart disease with heart failure; E78.5 Hyperlipidemia, unspecified; R51.9 Headache, unspecified; G58.9 Mononeuropathy, unspecified; H53.462 Homonymous bilateral field defects, left side; R29.700 NIHSS score 0
CPT/HCPCS: 36415; 70450-TC; 70496-TC; 70498-TC; 70551-TC; 80053; 80061; 81003; 83036; 83735; 83880; 84100; 84484; 85025; 85027; 85610; 85730; 86850; 86900; 86901; 93005; 93010; 93880-TC; 97116-GP; 97162-GP; 99285-25; G0378; Q9967